=== PATIENT | male | born 1935 | race Caucasian/White ===

== ENCOUNTER → 2017-01-26 | Day surgery (SDC) | payer MEDICARE, BC ==
[~2017-01-26] MED LIST: Lactated Ringers 1,000 ML IV SCH; Propofol 200 MG/20 ML SDV IV ONE
--- NOTE | 2017-01-26 10:07 | OR ---
DATE OF OPERATION: 01/26/2017 PREOPERATIVE DIAGNOSIS: POSITIVE COLOGUARD. POSTOPERATIVE DIAGNOSIS: POSITIVE COLOGUARD. SURGEON: Toñito Merchant MD PROCEDURE: FULL-LENGTH COLONOSCOPY WITH POLYP REMOVAL X6, BIOPSIES X3. 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 COMPLICATIONS: None. SPECIMEN: 7 separate polyps, see note. FINDINGS: 1. Full-length colonoscopy. 2. Severe sigmoid diverticulosis. 3. Multiple polyps with 2 large villous lesion, 1 at the hepatic flexure, 2nd in the sigmoid colon. RECOMMENDATIONS: The patient will likely need surgical followup as his sigmoid lesion is large villous and likely unresectable via snare. INDICATIONS: The patient had a routine Cologuard at a [facility], it was positive. He has not had a colonoscopy since 2006. DESCRIPTION OF PROCEDURE: The patient was prepped and draped, placed in the left lateral decubitus position. A lubricated Olympus colonoscope was inserted and with relative ease advanced to the cecum. The patient is bit tortuous through the sigmoid and has severe diverticular disease but once through that region, scope passed quite easily. Directly visualized the ileocecal valve and got into the cecal pouch. Upon withdrawal, the patient had 1 small hyperplastic- appearing polyp in the cecal region removed in its entirety with a forceps. He had 2 more small tubular adenomas ulcer removed in their entirety with forceps in the mid to distal portion of the ascending colon. 4 small polyps were again located at the hepatic flexure, removed with 2 forceps biopsies as well. Just on the transverse colon side of the hepatic flexure, the patient had his 5th polyp which was a large villous lesion and was removed with a snare in 2 separate sections and suctioned into polyp trap #1. The rest of the transverse colon and for the most part all of the descending colon were essentially benign. As stated earlier, the patient has severe diverticular disease in the sigmoid region. In the mid sigmoid colon around 50 cm, the patient again had a very small hyperplastic-appearing polyp removed in its entirety with forceps. At about 45 to 40 cm, the patient had a larger villous lesion which occupied much of the haustral fold. It was very broad-based and not fungating, but unresectable with a snare safely in our facility. We elected to biopsy it x3. Just distal to that he had another small hyperplastic-appearing lesion which was quite flat. We did do biopsy of that. The rest of the rectosigmoid junction and rectal vault appeared benign. Retroflexion showed no anal lesions. Air was then suctioned. Scope was removed without complication. TAVO/GILDA /[id number]
== END ==
LOC: CC.SDS 06:16
PROVIDERS: ATTEND Family Medicine
DX: Z12.11 Encounter for screening for malignant neoplasm of colon (principal); D12.0 Benign neoplasm of cecum; D12.2 Benign neoplasm of ascending colon; D12.3 Benign neoplasm of transverse colon; D12.5 Benign neoplasm of sigmoid colon; K57.30 Diverticulosis of large intestine without perforation or abscess without bleeding; I25.10 Atherosclerotic heart disease of native coronary artery without angina pectoris; N40.1 Benign prostatic hyperplasia with lower urinary tract symptoms; R35.1 Nocturia; E11.9 Type 2 diabetes mellitus without complications; E78.5 Hyperlipidemia, unspecified; G47.30 Sleep apnea, unspecified; E55.9 Vitamin D deficiency, unspecified; Z79.82 Long term (current) use of aspirin; Z79.4 Long term (current) use of insulin; Z79.899 Other long term (current) drug therapy; Z90.49 Acquired absence of other specified parts of digestive tract; Z98.890 Other specified postprocedural states; Z87.891 Personal history of nicotine dependence
CPT/HCPCS: 45380; 82962; J2704; J7120; 00810; 88305

== ENCOUNTER 2018-12-22 18:23 | Emergency (ER) | payer MEDICARE, BC ==
--- NOTE | 2018-12-22 18:30 | EDM.PDOC ---
ED HPI GENERAL MEDICAL PROBLEM - General Chief Complaint: Genitourinary Problem Stated Complaint: "Prostate Infection" Time Seen by Provider: 12/22/18 18:25 Source of Information: Reports: Patient History Limitations: Reports: No Limitations - History of Present Illness INITIAL COMMENTS - FREE TEXT/NARRATIVE: in with c/o urinary frequency and burning for the past couple of days, no fever or chills, no abd pain, no nvdc, no unusual neck/back pain or stiffness Onset: Gradual Duration: Day(s): Quality: Reports: Burning (with urination) Severity: Mild Improves with: Reports: None Worsens with: Reports: Other (voiding) Associated Symptoms: Reports: No Other Symptoms. Denies: Cough, Fever/Chills, Headaches, Nausea/Vomiting, Shortness of Breath, Weakness Treatments PENETRATION TESTER: Reports: Other (see below) (none) Groin Pain Score (Numeric/FACES): 4 - Related Data Allergies Allergy/AdvReac Type Severity Reaction Status Date / Time No Known Allergies Allergy Verified 12/22/18 18:35 Home Meds: Home Meds Aspirin [Lo-Dose Aspirin EC] 81 mg PO DAILY 01/25/17 [History] Benazepril [Lotensin] 10 mg PO BID 01/25/17 [History] Insulin Detemir [Levemir Flextouch] 30 unit SQ BEDTIME 01/25/17 [History] Insulin NPH/Insulin Reg,Human [HumuLIN 70-30] 45 units SUBCUT BIDAC 01/25/17 [ History] Metoprolol Succinate 0.5 tab PO DAILY 01/25/17 [History] Multivitamin [One Daily] 1 each PO DAILY 01/25/17 [History] Simvastatin [Zocor] 40 mg PO DAILY 01/25/17 [History] amLODIPine Besylate [Amlodipine Besylate] 10 mg PO DAILY 01/25/17 [History] glyBURIDE [Glyburide] 5 mg PO BID 01/25/17 [History] Phenazopyridine [Pyridium] 100 mg PO TID 2 Days #6 tab 12/22/18 [Rx] cephALEXin [Keflex] 500 mg PO Q8H 10 Days #30 cap 12/22/18 [Rx] Past Medical History - Infectious Disease History Infectious Disease History: Reports: MRSA Other Infectious Disease History: left wrist incision 9/26/18 Social & Family History - Family History Cardiac: Reports: Hypertension - Tobacco Use Smoking Status *Q: Never Smoker - Alcohol Use Alcohol Use History: No - Living Situation & Occupation Living situation: Reports: with Family ED ROS GENERAL - Review of Systems Review Of Systems: See Below Constitutional: Reports: No Symptoms. Denies: Fever, Chills Respiratory: Reports: No Symptoms. Denies: Shortness of Breath Cardiovascular: Reports: No Symptoms. Denies: Chest Pain GI/Abdominal: Reports: No Symptoms. Denies: Abdominal Pain, Nausea, Vomiting : Reports: Frequency, Pain. Denies: Discharge, Dysuria, Flank Pain, Hematuria , Urinary Retention Musculoskeletal: Reports: No Symptoms. Denies: Neck Pain, Back Pain Skin: Reports: No Symptoms. Denies: Bruising, Rash, Erythema Neurological: Reports: No Symptoms Psychiatric: Reports: No Symptoms ED EXAM, RENAL/ - Physical Exam Exam: See Below Exam Limited By: No Limitations General Appearance: Alert, WD/WN, No Apparent Distress Ears: Normal External Exam Nose: Normal Inspection Throat/Mouth: Normal Inspection, Normal Lips, Normal Voice, No Airway Compromise Head: Atraumatic, Normocephalic Neck: Normal Inspection, Supple, Non-Tender Respiratory/Chest: No Respiratory Distress, Lungs Clear, Normal Breath Sounds Cardiovascular: Normal Peripheral Pulses, Regular Rate, Rhythm GI/Abdominal: Soft, Non-Tender Back Exam: Normal Inspection, Full Range of Motion. No: CVA Tenderness (L), CVA Tenderness (R) Extremities: Normal Inspection, Normal Range of Motion, Non-Tender, Normal Capillary Refill Neurological: Alert, Oriented, Normal Cognition, Normal Gait, No Motor/Sensory Deficits Psychiatric: Normal Affect, Normal Mood Skin Exam: Warm, Dry, Intact, Normal Color, No Rash Course - Vital Signs Last Recorded V/S: Last Vital Signs Temp 36.2 C 12/22/18 18:24 Pulse 94 12/22/18 18:24 Resp 16 12/22/18 18:24 BP 171/82 H 12/22/18 18:24 Pulse Ox 96 12/22/18 18:24 - Orders/Labs/Meds Orders: Active Orders 24 hr Category Date Time Status CULTURE URINE [RM] Stat Lab 12/22/18 18:39 Received Phenazopyridine [Urinary Pain Relief] Med 12/23/18 18:48 Once 95 mg PO ONETIME ONE Medication Orders Phenazopyridine HCl (Urinary Pain Relief) 95 mg PO ONETIME ONE Stop: 12/23/18 18:49 Labs: Laboratory Tests 12/22/18 Range/Units 18:39 Urine Color Yellow (YELLOW) Urine Appearance Slightly cloudy (CLEAR) Urine pH 5.5 (4.5-8.0) Ur Specific [place] 1.025 H (1.003-1.020) Urine Protein 100 H (NEGATIVE) mg/dL Urine Glucose (UA) Negative (NEGATIVE) mg/dL Urine Ketones Negative (NEGATIVE) mg/dL Urine Occult Blood Moderate H (NEGATIVE) Urine Nitrite Negative (NEGATIVE) Urine Bilirubin Negative (NEGATIVE) Urine Urobilinogen 0.2 (0.2-1.0) EU/dL Ur Leukocyte Esterase Large H (NEGATIVE) Urine RBC 5-10 H (0-5) /HPF Urine WBC 75-100 H (0-5) /HPF Urine Bacteria Few H (NOT SEEN) /HPF Meds: Medications Generic Name Dose Route Start Last Admin Trade Name Freq PRN Reason Stop Dose Admin Phenazopyridine HCl 95 mg 12/23/18 18:48 Urinary Pain Relief PO 12/23/18 18:49 ONETIME ONE Discontinued Medications Generic Name Dose Route Start Last Admin Trade Name Freq PRN Reason Stop Dose Admin Ceftriaxone Sodium 1 gm 12/22/18 18:47 Rocephin IM 12/22/18 18:48 ONETIME ONE Departure - Departure Time of Disposition: 18:48 Disposition: Home, Self-Care 01 Condition: Good Clinical Impression: UTI, Urinary tract infectious disease - Discharge Information *PRESCRIPTION DRUG MONITORING PROGRAM REVIEWED*: Not Applicable *COPY OF PRESCRIPTION DRUG MONITORING REPORT IN PATIENT AYAH: Not Applicable Prescriptions: cephALEXin [Keflex] 500 mg PO Q8H 10 Days #30 cap Phenazopyridine [Pyridium] 100 mg PO TID 2 Days #6 tab Instructions: Antibiotic Medicine, Adult, [id number], Urinary Tract Infection , Adult, [id number] Referrals: Vickey Cuellar PA-C [Primary Care Provider] - Forms: ED Department Discharge Additional Instructions: increase fluids pyridium 100mg 3 x a day for 2 days keflex 500mg 3 x a day for 10 days follow up with your family doctor to recheck your urine in 7 to 10 days, call in am for an appointment time return to the ER sooner if worse or problems - Problem List & Annotations (1) UTI, Urinary tract infectious disease SNOMED Code(s): 67653942 Code(s): N39.0 - URINARY TRACT INFECTION, SITE NOT SPECIFIED Status: Acute Priority: Medium Current Visit: Yes - Problem List Review Problem List Initiated/Reviewed/Updated: Yes - My Orders Last 24 Hours: My Active Orders 12/22/18 18:39 CULTURE URINE [RM] Stat 12/23/18 18:48 Phenazopyridine [Urinary Pain Relief] 95 mg PO ONETIME ONE - Assessment/Plan Last 24 Hours: My Active Orders 12/22/18 18:39 CULTURE URINE [RM] Stat 12/23/18 18:48 Phenazopyridine [Urinary Pain Relief] 95 mg PO ONETIME ONE Plan: as above
[2018-12-22] MEDS ORDERED: cefTRIAXone 1 GM Vial IM ONE (18:47)
[2018-12-23] MEDS ORDERED: Phenazopyridine 95 MG Tab PO ONE (18:48)
== END 2018-12-22 18:59 | disposition home or self-care (01) ==
LOC: CC.ED 18:23
DX: N39.0 Urinary tract infection, site not specified (principal); Z79.82 Long term (current) use of aspirin; Z79.899 Other long term (current) drug therapy
CPT/HCPCS: 81001; 87086; 87088; 87186; 96372; 99283; 99284; J0696

== ENCOUNTER 2019-01-02 19:54 | Emergency (ER) | payer MEDICARE, BC ==
[2019-01-02] MEDS ORDERED: Ciprofloxacin 500 MG Tab PO ONE (19:55)
--- NOTE | 2019-01-02 20:45 | EDM.PDOC ---
ED HPI GENERAL MEDICAL PROBLEM - General Chief Complaint: Genitourinary Problem Stated Complaint: "prostrate infection" Time Seen by Provider: 01/02/19 20:30 Source of Information: Reports: Patient History Limitations: Reports: No Limitations - History of Present Illness INITIAL COMMENTS - FREE TEXT/NARRATIVE: States that he has been having problems with his prostate for "a while" He has been on macrobid and it is getting worse. Has noted that it is getting worse tonight and has noted more bleeding so presented to the ER for evaluation. States that the other antibiotics that he used worked better. Has history of multiple prostrate infections in the past. No fever. Onset: Gradual Location: Reports: Pelvis Quality: Reports: Pressure Associated Symptoms: Reports: No Other Symptoms Groin Pain Score (Numeric/FACES): 7 - Related Data Allergies Allergy/AdvReac Type Severity Reaction Status Date / Time No Known Allergies Allergy Verified 01/02/19 19:57 Home Meds: Home Meds Benazepril [Lotensin] 10 mg PO BID 01/25/17 [History] Insulin Detemir [Levemir Flextouch] 30 unit SQ BEDTIME 01/25/17 [History] Insulin NPH/Insulin Reg,Human [HumuLIN 70-30] 45 units SUBCUT BIDAC 01/25/17 [ History] Metoprolol Succinate 0.5 tab PO DAILY 01/25/17 [History] Multivitamin [One Daily] 1 each PO DAILY 01/25/17 [History] Simvastatin [Zocor] 40 mg PO DAILY 01/25/17 [History] amLODIPine Besylate [Amlodipine Besylate] 10 mg PO DAILY 01/25/17 [History] glyBURIDE [Glyburide] 5 mg PO BID 01/25/17 [History] Nitrofurantoin [place]/Macrocryst [Nitrofurantoin [place]-MCR] 100 mg PO BID 01/02/19 [History] Past Medical History HEENT History: Reports: Hard of Hearing Cardiovascular History: Reports: High Cholesterol, Hypertension Genitourinary History: Reports: Prostate Disorder, UTI, Recurrent Endocrine/Metabolic History: Reports: Diabetes, Type II - Infectious Disease History Infectious Disease History: Reports: MRSA Other Infectious Disease History: left wrist incision 01/02/18 Social & Family History - Family History Family Medical History: Noncontributory Cardiac: Reports: Hypertension - Caffeine Use Caffeine Use: Reports: Coffee - Living Situation & Occupation Living situation: Reports: with Family ED ROS GENERAL - Review of Systems Review Of Systems: See Below Constitutional: Denies: Fever, Chills Respiratory: Reports: No Symptoms Cardiovascular: Reports: No Symptoms : Reports: Hematuria, Pain Skin: Reports: No Symptoms ED EXAM, RENAL/ - Physical Exam Exam: See Below Exam Limited By: No Limitations General Appearance: Alert, WD/WN, Mild Distress Respiratory/Chest: No Respiratory Distress, Lungs Clear, Normal Breath Sounds Cardiovascular: Normal Peripheral Pulses, Regular Rate, Rhythm, No Edema GI/Abdominal: Normal Bowel Sounds, Soft, Non-Tender Extremities: Normal Inspection, No Pedal Edema Neurological: Alert, Oriented Skin Exam: Warm, Dry, Intact Course - Vital Signs Last Recorded V/S: Last Vital Signs Temp 97.7 F 01/02/19 19:55 Pulse 104 H 01/02/19 19:55 Resp 20 01/02/19 19:55 BP 116/92 H 01/02/19 19:55 Pulse Ox 98 01/02/19 19:55 - Orders/Labs/Meds Labs: Laboratory Tests 01/02/19 01/02/19 01/02/19 Range/Units 20:17 20:20 20:20 WBC 10.2 H (5.0-10.0) 10^3/uL RBC 5.80 (4.50-6.00) 10^6/uL Hgb 16.6 (14.0-18.0) g/dL Hct 48.4 (40.0-54.0) % MCV 83.4 (82.0-94.0) fL MCH 28.6 (27.0-32.0) pg MCHC 34.3 (33.0-38.0) g/dL RDW Coeff of Hernandez 14.8 (11.0-15.0) % Plt Count 187 (150-400) 10^3/uL Neut % (Auto) 68.2 (35-85) % Lymph % (Auto) 18.1 (10-55) % [place] % (Auto) 10.7 (0-16) % Eos % (Auto) 2.4 (0-5) % Baso % (Auto) 0.6 (0-3) % Neut # (Auto) 6.98 (1.80-7.00) 10^3/uL Lymph # (Auto) 1.85 (1.00-4.80) 10^3/uL [place] # (Auto) 1.09 H (0.00-0.80) 10^3/uL Eos # (Auto) 0.25 (0.00-0.45) 10^3/uL Baso # (Auto) 0.06 10^3/uL C-Reactive Protein < 0.2 L (0.2-0.8) mg/dL Urine Color Yellow (YELLOW) Urine Appearance Slightly cloudy (CLEAR) Urine pH 5.5 (4.5-8.0) Ur Specific [place] 1.020 (1.003-1.020) Urine Protein 100 H (NEGATIVE) mg/dL Urine Glucose (UA) Negative (NEGATIVE) mg/dL Urine Ketones Negative (NEGATIVE) mg/dL Urine Occult Blood Large H (NEGATIVE) Urine Nitrite Negative (NEGATIVE) Urine Bilirubin Negative (NEGATIVE) Urine Urobilinogen 0.2 (0.2-1.0) EU/dL Ur Leukocyte Esterase Negative (NEGATIVE) Urine RBC >100 H (0-5) /HPF Urine WBC Not seen (0-5) /HPF Ur Epithelial Cells Few H (NOT SEEN) /HPF Departure - Departure Time of Disposition: 20:46 Disposition: Home, Self-Care 01 Condition: Fair Clinical Impression: Prostatitis - Discharge Information *PRESCRIPTION DRUG MONITORING PROGRAM REVIEWED*: Not Applicable *COPY OF PRESCRIPTION DRUG MONITORING REPORT IN PATIENT AYAH: Not Applicable Additional Instructions: push fluids as much as possible Stop the macrobid Cipro 250 mg twice a day for 14 days Follow up in clinic as needed. - Problem List & Annotations (1) Prostatitis SNOMED Code(s): 2058682 Code(s): N41.9 - INFLAMMATORY DISEASE OF PROSTATE, UNSPECIFIED Status: Acute Priority: High - Problem List Review Problem List Initiated/Reviewed/Updated: Yes
[2019-01-02] MEDS: Take Home: Ciprofloxacin 500 MG Tab, 2 Tab Pack PO ONE (20:52)
== END 2019-01-02 20:58 | disposition home or self-care (01) ==
LOC: CC.ED 19:54
DX: N41.9 Inflammatory disease of prostate, unspecified (principal); I10 Essential (primary) hypertension; E11.9 Type 2 diabetes mellitus without complications; E78.5 Hyperlipidemia, unspecified; Z79.4 Long term (current) use of insulin; Z79.899 Other long term (current) drug therapy
CPT/HCPCS: 36415; 81001; 85025; 86140; 99283; A9270

== ENCOUNTER 2019-10-31 20:31 | Emergency (ER) | payer MEDICARE, BC ==
[2019-10-31 21:24] LABS: CHLORIDE,CL 104 mEq/L (98-106); SODIUM,NA 141 mEq/L (136-145)
--- NOTE | 2019-10-31 21:26 | EDM.PDOC ---
ED HPI GENERAL MEDICAL PROBLEM - General Chief Complaint: Genitourinary Problem Stated Complaint: "I think I have a bladder infection again." Time Seen by Provider: 10/31/19 20:54 Source of Information: Reports: Patient History Limitations: Reports: No Limitations - History of Present Illness INITIAL COMMENTS - FREE TEXT/NARRATIVE: This patient is an 84 year old male that presents to the ER. Patient reports that since about 5pm having urinary retention with blood in urine and a painful/full bladder. The patient reports that he was taking his Bactrim DS for preventative of his prostate, but he ran out a few days ago, then started retaking today. Onset: Today Onset Date: 10/31/19 Onset Time: 17:00 Location: Reports: Other (bladder) Severity: Moderate Improves with: Reports: None Worsens with: Reports: None Associated Symptoms: Denies: Confusion, Chest Pain, Cough, cough w sputum, Diaphoresis, Fever/Chills, Headaches, Loss of Appetite, Malaise, Nausea/Vomiting, Rash, Seizure, Shortness of Breath, Syncope, Weakness Pelvic Pain Score (Numeric/FACES): 8 - Related Data Allergies Allergy/AdvReac Type Severity Reaction Status Date / Time No Known Allergies Allergy Verified 10/31/19 20:43 Home Meds: Home Meds Benazepril [Lotensin] 10 mg PO BID 01/25/17 [History] Insulin Detemir [Levemir Flextouch] 30 unit SQ BEDTIME 01/25/17 [History] Insulin NPH/Insulin Reg,Human [HumuLIN 70-30] 50 units SUBCUT BIDAC 01/25/17 [History] Simvastatin [Zocor] 40 mg PO DAILY 01/25/17 [History] glyBURIDE [Glyburide] 5 mg PO BID 01/25/17 [History] Aspirin [Ecotrin EC] 81 mg PO DAILY 10/31/19 [History] Insulin Isophane NPH, Human [HumuLIN N] 20 units SQ WITHLUNCH 10/31/19 [History] Metoprolol Succinate [Toprol XL 100mg] 100 mg PO DAILY 10/31/19 [History] Sulfamethoxazole/Trimethoprim [Sulfamethoxazole-Tmp Ds Tablet] 1 each PO DAILY 10/31/19 [History] amLODIPine/Benazepril [Lotrel 10-20 MG] 1 cap PO DAILY 10/31/19 [History] lisinopriL [Lisinopril] 20 mg PO BID 10/31/19 [History] Past Medical History HEENT History: Reports: Hard of Hearing Cardiovascular History: Reports: High Cholesterol, Hypertension Genitourinary History: Reports: Prostate Disorder, UTI, Recurrent Endocrine/Metabolic History: Reports: Diabetes, Type II - Infectious Disease History Infectious Disease History: Reports: MRSA Other Infectious Disease History: left wrist incision 01/02/18 - Past Surgical History HEENT Surgical History: Reports: None Social & Family History - Family History Family Medical History: Noncontributory Cardiac: Reports: Hypertension - Caffeine Use Caffeine Use: Reports: Coffee - Living Situation & Occupation Living situation: Reports: with Family ED ROS GENERAL - Review of Systems Review Of Systems: See Below Constitutional: Reports: No Symptoms. Denies: Fever, Chills HEENT: Reports: No Symptoms Respiratory: Reports: No Symptoms Endocrine: Reports: No Symptoms GI/Abdominal: Reports: No Symptoms. Denies: Abdominal Pain, Nausea, Vomiting : Reports: Hematuria, Urgency, Urinary Retention. Denies: Flank Pain Musculoskeletal: Reports: No Symptoms Skin: Reports: No Symptoms Neurological: Reports: No Symptoms Psychiatric: Reports: No Symptoms Hematologic/Lymphatic: Reports: No Symptoms Immunologic: Reports: No Symptoms ED EXAM, RENAL/ - Physical Exam Exam: See Below Exam Limited By: No Limitations General Appearance: Alert, WD/WN, No Apparent Distress Eye Exam: Bilateral Eye: Normal Inspection, PERRL Head: Atraumatic, Normocephalic Neck: Normal Inspection, Supple, Full Range of Motion Respiratory/Chest: No Respiratory Distress, No Accessory Muscle Use, Rhonchi (throughout) Cardiovascular: Normal Peripheral Pulses, Regular Rate, Rhythm, No Edema, No Gallop, No JVD, No Murmur, No Rub GI/Abdominal: Normal Bowel Sounds, Soft, Non-Tender (Male) Exam: Other (bladder fullness) Back Exam: Normal Inspection, Full Range of Motion Extremities: Normal Inspection, Normal Range of Motion, Non-Tender, No Pedal Edema, Normal Capillary Refill Neurological: Alert, Oriented Psychiatric: Normal Affect, Normal Mood Skin Exam: Warm, Dry, Intact, Normal Color, No Rash Course - Vital Signs Last Recorded V/S: Last Vital Signs Temp 98.3 F 10/31/19 20:32 Pulse 95 10/31/19 20:32 Resp 16 10/31/19 20:32 BP 170/80 H 10/31/19 20:32 Pulse Ox 99 10/31/19 20:32 - Orders/Labs/Meds Labs: Laboratory Tests 10/31/19 10/31/19 10/31/19 Range/Units 20:56 20:56 21:20 WBC 10.2 H (5.0-10.0) 10^3/uL RBC 5.68 (4.50-6.00) 10^6/uL Hgb 16.2 (14.0-18.0) g/dL Hct 48.2 (40.0-54.0) % MCV 84.9 (82.0-94.0) fL MCH 28.5 (27.0-32.0) pg MCHC 33.6 (33.0-38.0) g/dL RDW Coeff of Hernandez 14.8 (11.0-15.0) % Plt Count 199 (150-400) 10^3/uL Neut % (Auto) 63.8 (35-85) % Lymph % (Auto) 22.0 (10-55) % [place] % (Auto) 10.8 (0-16) % Eos % (Auto) 3.1 (0-5) % Baso % (Auto) 0.3 (0-3) % Neut # (Auto) 6.53 (1.80-7.00) 10^3/uL Lymph # (Auto) 2.25 (1.00-4.80) 10^3/uL [place] # (Auto) 1.11 H (0.00-0.80) 10^3/uL Eos # (Auto) 0.32 (0.00-0.45) 10^3/uL Baso # (Auto) 0.03 10^3/uL Sodium 141 (136-145) mEq/L Potassium 4.3 (3.5-5.0) mEq/L Chloride 104 (98-106) mEq/L Carbon Dioxide 23 (21-32) mmol/L BUN 17 (7-18) mg/dL Creatinine 1.1 (0.7-1.3) mg/dL Est Cr Clr Drug Dosing 53.24 mL/min Estimated GFR (MDRD) > 60 (>=60) mL/min Glucose 253 H D (75-99) mg/dL Calcium 8.9 (8.4-10.1) mg/dL Total Bilirubin 0.7 (0.0-1.0) mg/dL AST 23 (15-37) U/L ALT 30 (12-78) U/L Alkaline Phosphatase 92 (46-116) U/L Total Protein 7.9 (6.4-8.2) g/dL Albumin 4.1 (3.4-5.0) g/dL Urine Color Yellow (YELLOW) Urine Appearance Clear (CLEAR) Urine pH 6.0 (4.5-8.0) Ur Specific [place] >= 1.030 H (1.003-1.020) Urine Protein 100 H (NEGATIVE) mg/dL Urine Glucose (UA) Negative (NEGATIVE) mg/dL Urine Ketones Negative (NEGATIVE) mg/dL Urine Occult Blood Large H (NEGATIVE) Urine Nitrite Negative (NEGATIVE) Urine Bilirubin Negative (NEGATIVE) Urine Urobilinogen 0.2 (0.2-1.0) EU/dL Ur Leukocyte Esterase Trace H (NEGATIVE) Urine RBC 50-75 H (0-5) /HPF Urine WBC Not seen (0-5) /HPF - Re-Assessments/Exams Free Text/Narrative Re-Assessment/Exam: 10/31/19 21:56 Patient had 1,100ml out frances. Patient reports he feels much better. blood with small clot initially, now flowing clear urine. Will discharge with frances. Departure - Departure Time of Disposition: 21:51 Disposition: Home, Self-Care 01 Condition: Fair Clinical Impression: Urinary retention due to benign prostatic hyperplasia - Discharge Information *PRESCRIPTION DRUG MONITORING PROGRAM REVIEWED*: Not Applicable *COPY OF PRESCRIPTION DRUG MONITORING REPORT IN PATIENT AYAH: Not Applicable Instructions: Indwelling Urinary Catheter Care, Adult, Benign Prostatic Hyperplasia, Acute Urinary Retention, Male, [id number] Forms: ED Department Discharge Additional Instructions: Followup with your primary care provider Sunday for recheck and possible catheter removal and urine culture report Followup with Dr. Bacon Return to the ER for clogging of catheter, fever, vomiting, or any concerns Continue your Bactrim DS as prescribed Sepsis Event Note (ED) - Evaluation Sepsis Screening Result: No Definite Risk - Focused Exam Vital Signs: Vital Signs Temp Pulse Resp BP Pulse Ox 10/31/19 20:32 98.3 F 95 16 170/80 H 99 - Assessment/Plan Plan: SEE RN NOTE FOR PFSH.
== END 2019-10-31 22:20 | disposition home or self-care (01) ==
LOC: CC.ED 20:31
DX: N40.1 Benign prostatic hyperplasia with lower urinary tract symptoms (principal); R33.8 Other retention of urine; I10 Essential (primary) hypertension; E11.9 Type 2 diabetes mellitus without complications; E78.00 Pure hypercholesterolemia, unspecified; Z79.82 Long term (current) use of aspirin; Z79.4 Long term (current) use of insulin; Z79.899 Other long term (current) drug therapy
CPT/HCPCS: 36415; 51702; 80053; 81001; 85025; 99283; 99284

== ENCOUNTER → 2020-01-14 | Emergency (ER) | payer MEDICARE, BC | LOC: CC.ED 19:24 | DX: Z53.21 Procedure and treatment not carried out due to patient leaving prior to being seen by health care provider (principal) ==

== ENCOUNTER 2020-02-01 10:34 | Inpatient (IN) | payer MEDICARE, BC ==
--- NOTE | 2020-02-01 11:32 | EDM.PDOC ---
ED HPI GENERAL MEDICAL PROBLEM - General Chief Complaint: General Stated Complaint: Nausea. COVID+ Time Seen by Provider: 02/01/20 10:50 Source of Information: Reports: Patient History Limitations: Reports: Other (hard of hearing) - History of Present Illness INITIAL COMMENTS - FREE TEXT/NARRATIVE: Marino is a 84 year old male who presents with complaints of weakness. Has been dealing with symptoms related to COVID. He tested over 2 weeks ago, was out of restrictions on . Patient states he continues to get more weak, not eating or drinking well as of late. Is feeling more short of breath. Cough has been nonproductive. No fevers. Has been alone over the last 2 weeks and feels he is getting sicker and sicker. Was seen on Sunday by Shalini and told his sodium was low and that he needed more intake of sodium-laden foods. Is now unable to keep any foods down now. Vomited 3 times in the last 15 hours. Also started having diarrhea. Patient very hard of hearing. Able to communicate by writing on paper. Onset: Gradual Duration: Week(s): Location: Reports: Generalized Quality: Reports: Ache Severity: Mild Associated Symptoms: Reports: Cough, cough w sputum, Malaise, Nausea/Vomiting, Shortness of Breath, Weakness. Denies: Confusion, Chest Pain - Related Data Allergies Allergy/AdvReac Type Severity Reaction Status Date / Time No Known Allergies Allergy Verified 02/01/20 13:27 Home Meds: Home Meds Benazepril [Lotensin] 10 mg PO BID 01/25/17 [History] Insulin Detemir [Levemir Flextouch] 30 unit SQ BEDTIME 01/25/17 [History] Insulin NPH/Insulin Reg,Human [HumuLIN 70-30] 50 units SUBCUT BIDAC 01/25/17 [History] Simvastatin [Zocor] 40 mg PO DAILY 01/25/17 [History] Aspirin [Ecotrin EC] 81 mg PO DAILY 10/31/19 [History] Insulin Isophane NPH, Human [HumuLIN N] 20 units SQ WITHLUNCH 10/31/19 [History] Metoprolol Succinate [Toprol XL 100mg] 100 mg PO DAILY 10/31/19 [History] Ketoconazole [Nizoral 2% Crm] 1 each TOP DAILY 12/11/19 [History] Tamsulosin HCl 0.4 mg PO DAILY 12/11/19 [History] Fluconazole [Diflucan] 100 mg PO DAILY 02/01/20 [History] Ondansetron [Zofran ODT] 4 mg PO Q6H PRN 02/01/20 [History] amLODIPine [Norvasc] 10 mg PO DAILY 02/01/20 [History] cloNIDine HCL [Clonidine HCl] 0.1 mg PO BID 02/01/20 [History] Past Medical History HEENT History: Reports: Hard of Hearing Cardiovascular History: Reports: High Cholesterol, Hypertension Genitourinary History: Reports: Prostate Disorder, UTI, Recurrent Endocrine/Metabolic History: Reports: Diabetes, Type II - Infectious Disease History Infectious Disease History: Reports: MRSA Other Infectious Disease History: left wrist incision 01/02/18 - Past Surgical History HEENT Surgical History: Reports: None Social & Family History - Family History Family Medical History: Noncontributory Cardiac: Reports: Hypertension - Tobacco Use Tobacco Use Status *Q: Never Tobacco User - Caffeine Use Caffeine Use: Reports: None - Recreational Drug Use Recreational Drug Use: No - Living Situation & Occupation Living situation: Reports: with Family ED ROS GENERAL - Review of Systems Review Of Systems: See Below Constitutional: Reports: Malaise, Weakness, Fatigue, Decreased Appetite. Denies: Fever, Chills HEENT: Denies: Sinus Problem, Throat Pain Respiratory: Reports: Shortness of Breath, Cough, Sputum Cardiovascular: Denies: Chest Pain, Edema, Lightheadedness Endocrine: Reports: Fatigue GI/Abdominal: Reports: Abdominal Pain, Diarrhea, Nausea, Vomiting. Denies: Constipation : Reports: No Symptoms Musculoskeletal: Reports: No Symptoms Skin: Reports: No Symptoms Neurological: Reports: Weakness ED EXAM, GENERAL - Physical Exam Exam: See Below Exam Limited By: No Limitations General Appearance: Alert, WD/WN, No Apparent Distress Ears: Normal External Exam, Normal TMs Nose: Normal Inspection, Normal Mucosa, No Blood Throat/Mouth: Normal Inspection, Normal Oropharynx Head: Normocephalic Neck: Normal Inspection, Supple, Non-Tender Respiratory/Chest: Decreased Breath Sounds, Rales (RLL) Cardiovascular: Regular Rate, Rhythm GI/Abdominal: Normal Bowel Sounds, Soft, Tender (midepigastric pain with palpation) Extremities: Normal Inspection, No Pedal Edema Neurological: Alert, Oriented Skin Exam: Warm, Dry Course - Vital Signs Last Recorded V/S: Last Vital Signs Temp 97 F 02/01/20 12:10 Pulse 99 02/01/20 12:10 Resp 20 02/01/20 12:10 BP 132/70 02/01/20 12:10 Pulse Ox 95 02/01/20 12:10 - Orders/Labs/Meds Orders: Active Orders 24 hr Category Date Time Status Chest 2V [CR] Stat Exams 02/01/20 10:44 Taken CULTURE BLOOD [BC] Stat Lab 02/01/20 10:59 Received CULTURE BLOOD [BC] Stat Lab 02/01/20 11:12 Received UA RFX BRANDON AND CULT IF INDIC [URIN] Stat Lab 02/01/20 10:44 Ordered Medication Orders Acetaminophen (Tylenol) 650 mg PO Q4H PRN PRN Reason: Pain (Mild 1-3)/fever Aspirin (Halfprin) 81 mg PO DAILY [facility] Clonidine HCl (Catapres) 0.1 mg PO BID [facility] Dexamethasone (Dexamethasone) 6 mg PO DAILY [facility] Enoxaparin Sodium (Lovenox) 40 mg SUBCUT BID [facility] Fluconazole (Diflucan) 100 mg PO DAILY [facility] Sodium Chloride (Normal Saline) 1,000 mls @ 50 mls/hr IV ASDIRECTED [facility] Ketoconazole (Nizoral 2% Crm) 15 gm TOP DAILY [facility] Metoprolol Succinate (Toprol Xl) 100 mg PO DAILY [facility] Non-Formulary Medication (Amlodipine [Norvasc]) 10 mg PO DAILY [facility] [place] Non-Formulary Medication (Benazepril [Lotensin]) 10 mg PO BID [facility] Non-Formulary Medication (Insulin Detemir) 30 unit SQ BEDTIME [facility] Non-Formulary Medication (Insulin Isophane Nph, Human) 20 units SQ WITHLUNCH [facility] Non-Formulary Medication (Insulin Nph/Insulin Reg,Human) 50 units SUBCUT BIDAC [facility] Ondansetron HCl (Zofran Odt) 4 mg PO Q4H PRN PRN Reason: nausea, able to take PO Pantoprazole Sodium (Protonix Iv) 40 mg IVPUSH Q24H [facility] Simvastatin (Zocor) 40 mg PO DAILY [facility] Tamsulosin HCl (Flomax) 0.4 mg PO DAILY [facility] Labs: Laboratory Tests 02/01/20 02/01/20 02/01/20 Range/Units 10:59 10:59 10:59 WBC 5.2 (5.0-10.0) 10^3/uL RBC 5.20 (4.50-6.00) 10^6/uL Hgb 13.8 L (14.0-18.0) g/dL Hct 41.4 (40.0-54.0) % MCV 79.6 L (82.0-94.0) fL MCH 26.5 L (27.0-32.0) pg MCHC 33.3 (33.0-38.0) g/dL RDW Coeff of Hernandez 14.7 (11.0-15.0) % Plt Count 182 (150-400) 10^3/uL Neut % (Auto) 76.1 (35-85) % Lymph % (Auto) 10.3 (10-55) % Crawford % (Auto) 13.4 (0-16) % Eos % (Auto) 0 (0-5) % Baso % (Auto) 0.2 (0-3) % Neut # (Auto) 3.93 (1.80-7.00) 10^3/uL Lymph # (Auto) 0.53 L (1.00-4.80) 10^3/uL Crawford # (Auto) 0.69 (0.00-0.80) 10^3/uL Eos # (Auto) 0.00 (0.00-0.45) 10^3/uL Baso # (Auto) 0.01 10^3/uL PT 11.6 (9.7-12.3) SEC INR 1.15 (0.92-1.18) D-Dimer, Quantitative 1.30 H (0.00-0.50) Sodium 130 L (136-145) mEq/L Potassium 4.6 (3.5-5.0) mEq/L Chloride 96 L (98-106) mEq/L Carbon Dioxide 20 L (21-32) mmol/L BUN 21 H (7-18) mg/dL Creatinine 1.6 H (0.7-1.3) mg/dL Est Cr Clr Drug Dosing 35.49 mL/min Estimated GFR (MDRD) 41 L (>=60) mL/min Glucose 228 H D (75-99) mg/dL Lactic Acid (0.4-2.0) mmol/L Calcium 8.5 (8.4-10.1) mg/dL Magnesium 1.9 (1.8-2.4) mg/dL Total Bilirubin 0.9 (0.0-1.0) mg/dL AST 18 (15-37) U/L ALT 18 (12-78) U/L Alkaline Phosphatase 74 (46-116) U/L C-Reactive Protein 6.4 H (0.2-0.8) mg/dL Total Protein 6.9 (6.4-8.2) g/dL Albumin 2.9 L (3.4-5.0) g/dL 01/31/ Range/Units 10:59 WBC (5.0-10.0) 10^3/uL RBC (4.50-6.00) 10^6/uL Hgb (14.0-18.0) g/dL Hct (40.0-54.0) % MCV (82.0-94.0) fL MCH (27.0-32.0) pg MCHC (33.0-38.0) g/dL RDW Coeff of Hernandez (11.0-15.0) % Plt Count (150-400) 10^3/uL Neut % (Auto) (35-85) % Lymph % (Auto) (10-55) % Crawford % (Auto) (0-16) % Eos % (Auto) (0-5) % Baso % (Auto) (0-3) % Neut # (Auto) (1.80-7.00) 10^3/uL Lymph # (Auto) (1.00-4.80) 10^3/uL Crawford # (Auto) (0.00-0.80) 10^3/uL Eos # (Auto) (0.00-0.45) 10^3/uL Baso # (Auto) 10^3/uL PT (9.7-12.3) SEC INR (0.92-1.18) D-Dimer, Quantitative (0.00-0.50) Sodium (136-145) mEq/L Potassium (3.5-5.0) mEq/L Chloride (98-106) mEq/L Carbon Dioxide (21-32) mmol/L BUN (7-18) mg/dL Creatinine (0.7-1.3) mg/dL Est Cr Clr Drug Dosing mL/min Estimated GFR (MDRD) (>=60) mL/min Glucose (75-99) mg/dL Lactic Acid 3.1 H (0.4-2.0) mmol/L Calcium (8.4-10.1) mg/dL Magnesium (1.8-2.4) mg/dL Total Bilirubin (0.0-1.0) mg/dL AST (15-37) U/L ALT (12-78) U/L Alkaline Phosphatase (46-116) U/L C-Reactive Protein (0.2-0.8) mg/dL Total Protein (6.4-8.2) g/dL Albumin (3.4-5.0) g/dL Meds: Medications Generic Name Dose Route Start Last Admin Trade Name Freq PRN Reason Stop Dose Admin Acetaminophen 650 mg 02/01/20 12:10 Tylenol PO Q4H PRN Pain (Mild 1-3)/fever Aspirin 81 mg 02/02/20 08:00 Halfprin PO DAILY [facility] Clonidine HCl 0.1 mg 02/01/20 20:00 Catapres PO BID [facility] Dexamethasone 6 mg 02/01/20 13:30 Dexamethasone PO DAILY [facility] Enoxaparin Sodium 40 mg 02/01/20 12:10 Lovenox SUBCUT BID [facility] Fluconazole 100 mg 02/02/20 08:00 Diflucan PO DAILY [facility] Sodium Chloride 1,000 mls @ 50 mls/hr 02/01/20 12:10 Normal Saline IV ASDIRECTED [facility] Ketoconazole 15 gm 02/02/20 08:00 Nizoral 2% Crm TOP DAILY [facility] Metoprolol Succinate 100 mg 02/02/20 08:00 Toprol Xl PO DAILY [facility] Non-Formulary Medication 10 mg 02/02/20 08:00 Amlodipine [Norvasc] PO DAILY [facility] Non-Formulary Medication 10 mg 02/01/20 20:00 Benazepril [Lotensin] PO BID [facility] Non-Formulary Medication 30 unit 02/01/20 20:00 Insulin Detemir SQ BEDTIME [facility] Non-Formulary Medication 20 units 02/02/20 12:00 Insulin Isophane Nph, Human SQ WITHLUNCH [facility] Non-Formulary Medication 50 units 02/01/20 17:00 Insulin Nph/Insulin Reg,Human SUBCUT BIDAC [facility] Ondansetron HCl 4 mg 02/01/20 12:10 Zofran Odt PO Q4H PRN nausea, able to take PO Pantoprazole Sodium 40 mg 02/01/20 13:30 Protonix Iv IVPUSH Q24H [facility] Simvastatin 40 mg 02/02/20 08:00 Zocor PO DAILY [facility] Tamsulosin HCl 0.4 mg 02/02/20 08:00 Flomax PO DAILY [facility] - Re-Assessments/Exams Free Text/Narrative Re-Assessment/Exam: 02/01/20 12:14 Chest xray shows more significant infiltrate than 2 days prior. Labs noted, sodium low at 130. Lactic acid 3.1. CRP 6.4. 02/01/20 13:37 Contacted [facility] and spoke with Dr. Fried in regards to patient status. As is outside the 10 day window, does not feel would benefit from either Remdesivir or plasma. Start dexamethasone and obtain an echocardiogram. Protonix and zofran for his nausea. infuse fluids cautiously. Departure - Departure Time of Disposition: 12:17 Disposition: Admitted As Inpatient 66 Condition: Fair Clinical Impression: Viral pneumonitis, COVID-19 - Discharge Information *PRESCRIPTION DRUG MONITORING PROGRAM REVIEWED*: No *COPY OF PRESCRIPTION DRUG MONITORING REPORT IN PATIENT AYAH: No Sepsis Event Note (ED) - Evaluation Sepsis Screening Result: No Definite Risk - Focused Exam Vital Signs: Vital Signs Temp Pulse Resp BP Pulse Ox 02/01/20 10:34 97.9 F 103 H 22 H 120/63 95 - Problem List & Annotations (1) Weakness SNOMED Code(s): 30901666 Code(s): R53.1 - WEAKNESS Status: Acute Priority: High Current Visit: Yes (2) COVID-19 SNOMED Code(s): 760795634 Code(s): U07.1 - COVID-19 Status: Acute Priority: High Current Visit: Yes (3) Viral pneumonitis SNOMED Code(s): 29934212 Code(s): J12.9 - VIRAL PNEUMONIA, UNSPECIFIED Status: Acute Priority: High Current Visit: Yes - Problem List Review Problem List Initiated/Reviewed/Updated: Yes - My Orders Last 24 Hours: My Active Orders 02/01/20 10:44 Chest 2V [CR] Stat UA RFX BRANDON AND CULT IF INDIC [URIN] Stat 02/01/20 10:59 CULTURE BLOOD [BC] Stat 02/01/20 11:12 CULTURE BLOOD [BC] Stat - Assessment/Plan Admission H&P: Please use this note as an admission H&P Last 24 Hours: My Active Orders 02/01/20 10:44 Chest 2V [CR] Stat UA RFX BRANDON AND CULT IF INDIC [URIN] Stat 02/01/20 10:59 CULTURE BLOOD [BC] Stat 02/01/20 11:12 CULTURE BLOOD [BC] Stat Assessment:: Weakness Viral Pneumonitis COVID 19 Plan: Admit to inpatient. Start Dexamethasone. IV fluids cautiously. Protonix and zofran IV.
[2020-02-01] MEDS ORDERED: Ondansetron 4 MG Tab.DIS PO PRN (12:10)
[2020-02-01] MEDS ORDERED: Acetaminophen 325 MG Tab PO PRN (12:10)
[2020-02-01] MEDS ORDERED: Furosemide 40 MG/4 ML VIAL IVPUSH ONE (14:12)
[2020-02-01] MEDS: Sodium Chloride 0.9% 1,000 ML IV SCH (14:37)
[2020-02-01] MEDS: Dexamethasone 4 MG Tab PO SCH (14:38)
[2020-02-01] MEDS: Cholecalciferol (Vitamin D3) 25 MCG Tab PO SCH (14:38)
[2020-02-01] MEDS: Enoxaparin 40 MG/0.4 ML Syringe SUBCUT SCH ×2 (14:38→19:46)
[2020-02-01] MEDS: Ascorbic Acid 500 MG Tab PO SCH (14:39)
[2020-02-01] MEDS: Pantoprazole 40 MG Vial IVPUSH SCH (14:39)
[2020-02-01] MEDS ORDERED: Insulin Regular, Human 100 Units/ML 3 ML Vial SUBCUT SCH (17:00)
[2020-02-01] MEDS ORDERED: Insulin Glarg,Human.Rec.Analog 100 Unit/ML SUBCUT SCH (20:00)
[2020-02-01] MEDS: cloNIDine 0.1 MG Tab PO SCH (20:09)
[2020-02-01] MEDS: Lisinopril 10 MG Tab PO SCH (20:09)
[2020-02-01] MEDS: Insulin Glarg,Human.Rec.Analog 100 Unit/ML SUBCUT SCH (20:09)
[2020-02-02] MEDS: Tamsulosin 0.4 MG Cap.ER PO SCH (07:56)
[2020-02-02] MEDS: Ascorbic Acid 500 MG Tab PO SCH (07:56)
[2020-02-02] MEDS: Simvastatin 40 MG Tab PO SCH (07:56)
[2020-02-02] MEDS: Zinc Sulfate 220 MG Cap PO SCH (07:56)
[2020-02-02] MEDS: amLODIPine 10 MG Tab PO SCH (07:56)
[2020-02-02] MEDS: Enoxaparin 40 MG/0.4 ML Syringe SUBCUT SCH ×2 (07:56→19:46)
[2020-02-02] MEDS: Dexamethasone 4 MG Tab PO SCH (07:57)
[2020-02-02] MEDS: Furosemide 40 MG Tab PO SCH (07:58)
[2020-02-02] MEDS: Fluconazole 100 MG Tab PO SCH (07:58)
[2020-02-02] MEDS: Lisinopril 10 MG Tab PO SCH ×2 (07:58→19:46)
[2020-02-02] MEDS: Aspirin 81 MG Tab.EC PO SCH (07:58)
[2020-02-02] MEDS: Cholecalciferol (Vitamin D3) 25 MCG Tab PO SCH (07:58)
[2020-02-02] MEDS: cloNIDine 0.1 MG Tab PO SCH ×2 (07:58→19:46)
[2020-02-02] MEDS: Metoprolol Succinate 100 MG Tab.ER PO SCH (07:58)
[2020-02-02] MEDS: Insulin Regular, Human 100 Units/ML 3 ML Vial SUBCUT SCH ×3 (08:12→18:07)
[2020-02-02] MEDS: Sodium Chloride 0.9% 1,000 ML IV SCH (10:02)
[2020-02-02] MEDS: Ketoconazole 15 GM TUBE TOP SCH (11:37)
[2020-02-02] MEDS ORDERED: INSULIN ISOPHANE NPH HUMAN SQ SCH (12:00)
[2020-02-02] MEDS ORDERED: Insulin Lispro 100 Units/ML 3 ML Vial SUBCUT ONE (12:30)
[2020-02-02] MEDS: Pantoprazole 40 MG Vial IVPUSH SCH (13:29)
--- NOTE | 2020-02-02 18:52 | PCM.PN ---
- General Info Date of Service: 02/02/20 Admission Dx/Problem (Free Text): WEakness COVID 19 Functional Status: Reports: Pain Controlled, Tolerating Diet, Ambulating - Review of Systems General: Reports: Weakness, Fatigue, Malaise, Chills HEENT: Reports: Rhinitis. Denies: Ear Pain, Sinus Congestion Pulmonary: Reports: Shortness of Breath (does admit that shortness of breath is better today than yesterday) Cardiovascular: Denies: Chest Pain, Palpitations, Dyspnea on Exertion Gastrointestinal: Denies: Abdominal Pain, Nausea, Vomiting Genitourinary: Reports: No Symptoms Musculoskeletal: Reports: No Symptoms Skin: Reports: No Symptoms Neurological: Reports: Weakness - Patient Data Vitals - Most Recent: Last Vital Signs Temp 98.2 F 02/02/20 16:00 Pulse 82 02/02/20 16:00 Resp 20 02/02/20 16:00 BP 105/43 L 02/02/20 16:00 Pulse Ox 95 02/02/20 16:00 Weight - Most Recent: 185 lb I&O - Last 24 Hours: Intake & Output 02/02/20 02/02/20 02/02/20 06:59 14:59 22:59 Intake Total 827 149 9344 Output Total 550 800 Balance -250 971 200 Lab Results Last 24 Hours: Laboratory Results - last 24 hr 02/01/20 02/02/20 02/02/20 Range/Units 16:07 07:15 07:15 WBC 3.0 L (5.0-10.0) 10^3/uL RBC 5.10 (4.50-6.00) 10^6/uL Hgb 13.5 L (14.0-18.0) g/dL Hct 40.1 (40.0-54.0) % MCV 78.6 L (82.0-94.0) fL MCH 26.5 L (27.0-32.0) pg MCHC 33.7 (33.0-38.0) g/dL RDW Coeff of Hernandez 14.7 (11.0-15.0) % Plt Count 202 (150-400) 10^3/uL Neut % (Auto) 74.0 (35-85) % Lymph % (Auto) 11.2 (10-55) % [place] % (Auto) 14.5 (0-16) % Eos % (Auto) 0 (0-5) % Baso % (Auto) 0.3 (0-3) % Neut # (Auto) 2.24 (1.80-7.00) 10^3/uL Lymph # (Auto) 0.34 L (1.00-4.80) 10^3/uL [place] # (Auto) 0.44 (0.00-0.80) 10^3/uL Eos # (Auto) 0.00 (0.00-0.45) 10^3/uL Baso # (Auto) 0.01 10^3/uL D-Dimer, Quantitative 1.08 H (0.00-0.50) Sodium (136-145) mEq/L Potassium (3.5-5.0) mEq/L Chloride (98-106) mEq/L Carbon Dioxide (21-32) mmol/L BUN (7-18) mg/dL Creatinine (0.7-1.3) mg/dL Est Cr Clr Drug Dosing mL/min Estimated GFR (MDRD) (>=60) mL/min Glucose (75-99) mg/dL POC Glucose (75-105) mg/dl Calcium (8.4-10.1) mg/dL Total Bilirubin (0.0-1.0) mg/dL AST (15-37) U/L ALT (12-78) U/L Alkaline Phosphatase (46-116) U/L Troponin I (0.00-0.06) ng/mL C-Reactive Protein (0.2-0.8) mg/dL Total Protein (6.4-8.2) g/dL Albumin (3.4-5.0) g/dL Urine Color Yellow (YELLOW) Urine Appearance Slightly cloudy (CLEAR) Urine pH 5.5 (4.5-8.0) Ur Specific [place] >= 1.030 H (1.003-1.020) Urine Protein 100 H (NEGATIVE) mg/dL Urine Glucose (UA) Negative (NEGATIVE) mg/dL Urine Ketones 40 H (NEGATIVE) mg/dL Urine Occult Blood Trace-intact H (NEGATIVE) Urine Nitrite Negative (NEGATIVE) Urine Bilirubin Negative (NEGATIVE) Urine Urobilinogen 0.2 (0.2-1.0) EU/dL Ur Leukocyte Esterase Negative (NEGATIVE) Urine RBC 5-10 H (0-5) /HPF Urine WBC 0-5 (0-5) /HPF Ur Squamous Epith Cells Few H (NOT SEEN) /HPF Urine Bacteria Rare (NOT SEEN) /HPF Urine Mucus Few H (NOT SEEN) /HPF 02/02/20 02/02/20 Range/Units 07:15 08:09 WBC (5.0-10.0) 10^3/uL RBC (4.50-6.00) 10^6/uL Hgb (14.0-18.0) g/dL Hct (40.0-54.0) % MCV (82.0-94.0) fL MCH (27.0-32.0) pg MCHC (33.0-38.0) g/dL RDW Coeff of Hernandez (11.0-15.0) % Plt Count (150-400) 10^3/uL Neut % (Auto) (35-85) % Lymph % (Auto) (10-55) % [place] % (Auto) (0-16) % Eos % (Auto) (0-5) % Baso % (Auto) (0-3) % Neut # (Auto) (1.80-7.00) 10^3/uL Lymph # (Auto) (1.00-4.80) 10^3/uL [place] # (Auto) (0.00-0.80) 10^3/uL Eos # (Auto) (0.00-0.45) 10^3/uL Baso # (Auto) 10^3/uL D-Dimer, Quantitative (0.00-0.50) Sodium 131 L (136-145) mEq/L Potassium 4.8 (3.5-5.0) mEq/L Chloride 98 (98-106) mEq/L Carbon Dioxide 21 (21-32) mmol/L BUN 22 H (7-18) mg/dL Creatinine 1.3 (0.7-1.3) mg/dL Est Cr Clr Drug Dosing 43.68 mL/min Estimated GFR (MDRD) 53 L (>=60) mL/min Glucose 333 H* D (75-99) mg/dL POC Glucose 306 H (75-105) mg/dl Calcium 8.3 L (8.4-10.1) mg/dL Total Bilirubin 0.6 (0.0-1.0) mg/dL AST 15 (15-37) U/L ALT 16 (12-78) U/L Alkaline Phosphatase 65 (46-116) U/L Troponin I 0.084 H (0.00-0.06) ng/mL C-Reactive Protein 7.0 H (0.2-0.8) mg/dL Total Protein 6.5 (6.4-8.2) g/dL Albumin 2.6 L (3.4-5.0) g/dL Urine Color (YELLOW) Urine Appearance (CLEAR) Urine pH (4.5-8.0) Ur Specific [place] (1.003-1.020) Urine Protein (NEGATIVE) mg/dL Urine Glucose (UA) (NEGATIVE) mg/dL Urine Ketones (NEGATIVE) mg/dL Urine Occult Blood (NEGATIVE) Urine Nitrite (NEGATIVE) Urine Bilirubin (NEGATIVE) Urine Urobilinogen (0.2-1.0) EU/dL Ur Leukocyte Esterase (NEGATIVE) Urine RBC (0-5) /HPF Urine WBC (0-5) /HPF Ur Squamous Epith Cells (NOT SEEN) /HPF Urine Bacteria (NOT SEEN) /HPF Urine Mucus (NOT SEEN) /HPF Jayme Results Last 24 Hours: Microbiology 02/01/20 11:12 Aerobic Blood Culture - Preliminary Blood - Venous - Lab Draw NO GROWTH AFTER 1 DAY Anaerobic Blood Culture - Preliminary NO GROWTH AFTER 1 DAY 02/01/20 10:59 Aerobic Blood Culture - Preliminary Blood - Venous NO GROWTH AFTER 1 DAY Anaerobic Blood Culture - Preliminary NO GROWTH AFTER 1 DAY Med Orders - Current: Current Medications Acetaminophen (Tylenol) 650 mg PO Q4H PRN PRN Reason: Pain (Mild 1-3)/fever Amlodipine Besylate (Norvasc) 10 mg PO DAILY [facility] Last Admin: 02/02/20 07:56 Dose: 10 mg Documented by: Ascorbic Acid (Vitamin C) 500 mg PO DAILY [facility] Last Admin: 02/02/20 07:56 Dose: 500 mg Documented by: Aspirin (Halfprin) 81 mg PO DAILY [facility] Last Admin: 02/02/20 07:58 Dose: 81 mg Documented by: Cholecalciferol (Vitamin D3) 50 mcg PO DAILY [facility] Last Admin: 02/02/20 07:58 Dose: 50 mcg Documented by: Clonidine HCl (Catapres) 0.1 mg PO BID [facility] Last Admin: 02/02/20 07:58 Dose: 0.1 mg Documented by: Dexamethasone (Dexamethasone) 6 mg PO DAILY [facility] Last Admin: 02/02/20 07:57 Dose: 6 mg Documented by: Enoxaparin Sodium (Lovenox) 40 mg SUBCUT BID [facility] Last Admin: 02/02/20 07:56 Dose: 40 mg Documented by: Fluconazole (Diflucan) 100 mg PO DAILY [facility] Last Admin: 02/02/20 07:58 Dose: 100 mg Documented by: Furosemide (Lasix) 40 mg PO DAILY [facility] Last Admin: 02/02/20 07:58 Dose: 40 mg Documented by: Sodium Chloride (Normal Saline) 1,000 mls @ 50 mls/hr IV ASDIRECTED [facility] Last Admin: 02/02/20 10:02 Dose: 50 mls/hr Documented by: Insulin Glargine (Lantus) 35 unit SUBCUT BEDTIME [facility] Last Admin: 02/01/20 20:09 Dose: 35 units Documented by: Insulin Human Regular (Humulin R) 0 unit SUBCUT DAILY@0730,1130,1700 [facility]; Protocol Last Admin: 02/02/20 18:07 Dose: 15 units Documented by: Ketoconazole (Nizoral 2% Crm) 15 gm TOP DAILY [facility] Last Admin: 02/02/20 11:37 Dose: Not Given Documented by: Lisinopril (Prinivil) 10 mg PO BID [facility] Last Admin: 02/02/20 07:58 Dose: 10 mg Documented by: Metoprolol Succinate (Toprol Xl) 100 mg PO DAILY [facility] Last Admin: 02/02/20 07:58 Dose: 100 mg Documented by: Ondansetron HCl (Zofran Odt) 4 mg PO Q4H PRN PRN Reason: nausea, able to take PO Pantoprazole Sodium (Protonix Iv) 40 mg IVPUSH DAILY@1200 [facility] Simvastatin (Zocor) 40 mg PO DAILY [facility] Last Admin: 02/02/20 07:56 Dose: 40 mg Documented by: Tamsulosin HCl (Flomax) 0.4 mg PO DAILY [facility] Last Admin: 02/02/20 07:56 Dose: 0.4 mg Documented by: Zinc Sulfate (Zincate) 220 mg PO DAILY [facility] Last Admin: 02/02/20 07:56 Dose: 220 mg Documented by: Discontinued Medications Furosemide (Lasix) 40 mg IVPUSH ONETIME ONE Stop: 02/01/20 14:13 Last Admin: 02/01/20 14:38 Dose: 40 mg Documented by: Insulin Glargine (Lantus) 30 unit SUBCUT BEDTIME [facility] Insulin Human Lispro (Humalog) 20 unit SUBCUT ONETIME ONE Stop: 02/02/20 12:31 Last Admin: 02/02/20 13:21 Dose: 20 units Documented by: Insulin Human Regular (Humulin R) 50 unit SUBCUT BIDAC [facility] Last Admin: 02/01/20 18:24 Dose: Not Given Documented by: Insulin Human Regular (Humulin R) 0 unit SUBCUT TID [facility]; Protocol Last Admin: 02/02/20 13:20 Dose: 20 units Documented by: Non-Formulary Medication (Insulin Isophane Nph, Human) 20 units SQ WITHLUNCH [facility] Pantoprazole Sodium (Protonix Iv) 40 mg IVPUSH Q24H [facility] Last Admin: 02/02/20 13:29 Dose: 40 mg Documented by: - Exam General: Alert, Oriented HEENT: Mucous Membr. Moist/[place] Neck: Supple Lungs: Decreased Breath Sounds Cardiovascular: Regular Rate, Regular Rhythm GI/Abdominal Exam: Normal Bowel Sounds, Soft, Non-Tender Extremities: Normal Inspection, No Pedal Edema Skin: Warm, Dry Neurological: No New Focal Deficit Sepsis Event Note - Evaluation Sepsis Screening Result: No Definite Risk - Focused Exam Vital Signs: Vital Signs Temp Pulse Pulse Resp BP BP Pulse Ox 02/02/20 16:00 98.2 F 82 20 105/43 L 95 02/02/20 12:00 97.2 F 72 20 107/85 96 02/02/20 08:59 98.0 F 76 20 152/67 H 95 02/02/20 07:58 98 152/67 H 02/02/20 07:56 152/67 H - Problem List & Annotations (1) Weakness SNOMED Code(s): 90899272 Code(s): R53.1 - WEAKNESS Status: Acute Priority: High Current Visit: Yes (2) COVID-19 SNOMED Code(s): 111530622 Code(s): U07.1 - COVID-19 Status: Acute Priority: High Current Visit: Yes (3) Viral pneumonitis SNOMED Code(s): 71669643 Code(s): J12.9 - VIRAL PNEUMONIA, UNSPECIFIED Status: Acute Priority: High Current Visit: Yes (4) CHF (congestive heart failure) SNOMED Code(s): 90150701 Code(s): I50.9 - HEART FAILURE, UNSPECIFIED Status: Acute Priority: High Current Visit: Yes Qualifiers: Heart failure type: systolic Heart failure chronicity: acute on chronic Qualified Code(s): I50.23 - Acute on chronic systolic (congestive) heart failure (5) Sepsis SNOMED Code(s): 26339437 Code(s): A41.9 - SEPSIS, UNSPECIFIED ORGANISM Status: Acute Priority: High Current Visit: Yes Qualifiers: Sepsis type: sepsis due to unspecified organism Sepsis acute organ dysfunction status: without acute organ dysfunction Qualified Code(s): A41.9 - Sepsis, unspecified organism - Problem List Review Problem List Initiated/Reviewed/Updated: Yes - My Orders Last 24 Hours: My Active Orders 02/01/20 18:25 Blood Glucose Check, Bedside [] 0730,1130,1700,202902/01/20 20:00 Insulin Glarg,Human.Rec.Analog [LantUS] 35 unit SUBCUT BEDTIME cloNIDine [Catapres] 0.1 mg PO BID lisinopriL [Prinivil] 10 mg PO BID 02/01/20 22:16 Incentive Spirometry [RT Incentive Spirometry] [RC] .PRN 02/02/20 08:00 Aspirin [Halfprin] 81 mg PO DAILY Fluconazole [Diflucan] 100 mg PO DAILY Furosemide [Lasix] 40 mg PO DAILY Ketoconazole [Nizoral 2% Crm] 15 gm TOP DAILY Metoprolol Succinate [Toprol XL] 100 mg PO DAILY Simvastatin [Zocor] 40 mg PO DAILY Tamsulosin [Flomax] 0.4 mg PO DAILY Zinc Sulfate [Zincate] 220 mg PO DAILY amLODIPine [Norvasc] 10 mg PO DAILY 02/02/20 13:23 Echo Comp wo Cont [US] Routine 02/02/20 17:00 Insulin Regular, Human [HumuLIN R] 0 unit SUBCUT DAILY@0730,1130,1700 02/03/20 05:11 C-REACTIVE PROTEIN [CHEM] DAILY CBC WITH AUTO DIFF [HEME] DAILY COMPREHENSIVE METABOLIC PN,CMP [CHEM] DAILY D-DIMER QUANTITATIVE [COAG] DAILY 02/03/20 12:00 Pantoprazole [ProTONIX IV] 40 mg IVPUSH DAILY@1200 02/04/20 05:11 C-REACTIVE PROTEIN [CHEM] DAILY CBC WITH AUTO DIFF [HEME] DAILY COMPREHENSIVE METABOLIC PN,CMP [CHEM] DAILY D-DIMER QUANTITATIVE [COAG] DAILY - Assessment Assessment:: Weakness COVID 19 CHF Sepsis - Plan Plan:: Patient admits to feeling better today. Was able to eat breakfast today without nausea. Ambulating to and from bathroom, feels stronger. Less shortness of breath. Occasional cough. Does void frequently, every 30 minutes or so. Still having loose stools this am. No fevers. Oxygen sats 95%. Sodium 131 today. Troponin remains indeterminate. CRP at 7.0. Will obtain echo this am. Stop IV fluids as oral intake has improved. Continue Lasix. Repeat labs in am.
[2020-02-02] MEDS: Insulin Glarg,Human.Rec.Analog 100 Unit/ML SUBCUT SCH (19:47)
[2020-02-03] MEDS: Cholecalciferol (Vitamin D3) 25 MCG Tab PO SCH (07:49)
[2020-02-03] MEDS: Enoxaparin 40 MG/0.4 ML Syringe SUBCUT SCH ×2 (07:49→20:22)
[2020-02-03] MEDS: Zinc Sulfate 220 MG Cap PO SCH (07:50)
[2020-02-03] MEDS: Fluconazole 100 MG Tab PO SCH (07:50)
[2020-02-03] MEDS: Simvastatin 40 MG Tab PO SCH (07:50)
[2020-02-03] MEDS: Dexamethasone 4 MG Tab PO SCH (07:50)
[2020-02-03] MEDS: cloNIDine 0.1 MG Tab PO SCH ×2 (07:51→20:24)
[2020-02-03] MEDS: Ascorbic Acid 500 MG Tab PO SCH (08:00)
[2020-02-03] MEDS: Metoprolol Succinate 100 MG Tab.ER PO SCH (08:00)
[2020-02-03] MEDS: amLODIPine 10 MG Tab PO SCH (08:01)
[2020-02-03] MEDS: Tamsulosin 0.4 MG Cap.ER PO SCH (08:01)
[2020-02-03] MEDS: Aspirin 81 MG Tab.EC PO SCH (08:01)
[2020-02-03] MEDS: Lisinopril 10 MG Tab PO SCH ×2 (08:01→20:24)
[2020-02-03] MEDS: Furosemide 40 MG Tab PO SCH (08:01)
[2020-02-03] MEDS: Insulin Regular, Human 100 Units/ML 3 ML Vial SUBCUT SCH ×3 (08:19→17:37)
[2020-02-03] MEDS: Ketoconazole 15 GM TUBE TOP SCH (08:20)
[2020-02-03] MEDS: Pantoprazole 40 MG Vial IVPUSH SCH (13:00)
[2020-02-03] MEDS: Insulin Glarg,Human.Rec.Analog 100 Unit/ML SUBCUT SCH (20:32)
--- NOTE | 2020-02-03 20:40 | PCM.PN ---
- General Info Date of Service: 02/03/20 Admission Dx/Problem (Free Text): WEakness COVID 19 Subjective Update: Marino is an 84 yo male who was admitted 02/01/2020 with weakness and covid 19. Was also found to have elevated proBNP. Questionable viral induced myocarditis as cause of acute CHF. Patient without history of CHF and proBNP > 5000. He did receive a dose of IV lasix and now has been on 40 mg PO lasix daily and has diuresed well. He reports no ongoing shortness of breath. He reports he is feeling much better this morning and wishes to go home as "the rooms are cold." He offers up no additional complaints. He is very [place] so difficult to communicate with. Communication done via writing on paper. Functional Status: Reports: Pain Controlled, Tolerating Diet, Ambulating, Urinating. Denies: New Symptoms - Review of Systems General: Reports: Weakness, Fatigue. Denies: Fever, Malaise HEENT: Reports: No Symptoms Pulmonary: Reports: Cough (ocassional) Cardiovascular: Reports: Dyspnea on Exertion. Denies: Chest Pain, Edema Gastrointestinal: Reports: No Symptoms. Denies: Diarrhea Genitourinary: Reports: No Symptoms Musculoskeletal: Reports: No Symptoms Skin: Reports: No Symptoms Neurological: Reports: No Symptoms Psychiatric: Reports: No Symptoms - Patient Data Vitals - Most Recent: Last Vital Signs Temp 98.6 F 02/03/20 16:00 Pulse 84 02/03/20 16:00 Resp 18 02/03/20 16:00 BP 123/51 L 02/03/20 20:24 Pulse Ox 96 02/03/20 16:00 Weight - Most Recent: 185 lb I&O - Last 24 Hours: Intake & Output 02/03/20 02/03/20 02/03/20 06:59 14:59 22:59 Intake Total 937 818 9155 Output Total 550 1500 Balance -50 400 -300 Lab Results Last 24 Hours: Laboratory Results - last 24 hr 02/03/20 02/03/20 02/03/20 Range/Units 05:11 07:00 07:00 WBC 11.2 H (5.0-10.0) 10^3/uL RBC 5.08 (4.50-6.00) 10^6/uL Hgb 13.6 L (14.0-18.0) g/dL Hct 40.1 (40.0-54.0) % MCV 78.9 L (82.0-94.0) fL MCH 26.8 L (27.0-32.0) pg MCHC 33.9 (33.0-38.0) g/dL RDW Coeff of Hernandez 14.9 (11.0-15.0) % Plt Count 254 (150-400) 10^3/uL Neut % (Auto) 87.7 H (35-85) % Lymph % (Auto) 3.8 L (10-55) % [place] % (Auto) 8.4 (0-16) % Eos % (Auto) 0 (0-5) % Baso % (Auto) 0.1 (0-3) % Neut # (Auto) 9.83 H (1.80-7.00) 10^3/uL Lymph # (Auto) 0.43 L (1.00-4.80) 10^3/uL [place] # (Auto) 0.94 H (0.00-0.80) 10^3/uL Eos # (Auto) 0.00 (0.00-0.45) 10^3/uL Baso # (Auto) 0.01 10^3/uL D-Dimer, Quantitative 0.85 H (0.00-0.50) Sodium 135 L (136-145) mEq/L Potassium 4.4 (3.5-5.0) mEq/L Chloride 100 (98-106) mEq/L Carbon Dioxide 24 (21-32) mmol/L BUN 27 H (7-18) mg/dL Creatinine 1.3 (0.7-1.3) mg/dL Est Cr Clr Drug Dosing 43.68 mL/min Estimated GFR (MDRD) 53 L (>=60) mL/min Glucose 222 H D (75-99) mg/dL Calcium 8.5 (8.4-10.1) mg/dL Total Bilirubin 0.5 (0.0-1.0) mg/dL AST 17 (15-37) U/L ALT 17 (12-78) U/L Alkaline Phosphatase 71 (46-116) U/L C-Reactive Protein 3.5 H (0.2-0.8) mg/dL Total Protein 6.7 (6.4-8.2) g/dL Albumin 2.8 L (3.4-5.0) g/dL Jayme Results Last 24 Hours: Microbiology 02/01/20 11:12 Aerobic Blood Culture - Preliminary Blood - Venous - Lab Draw NO GROWTH AFTER 2 DAYS Anaerobic Blood Culture - Preliminary NO GROWTH AFTER 2 DAYS 02/01/20 10:59 Aerobic Blood Culture - Preliminary Blood - Venous NO GROWTH AFTER 2 DAYS Anaerobic Blood Culture - Preliminary NO GROWTH AFTER 2 DAYS Med Orders - Current: Current Medications Acetaminophen (Tylenol) 650 mg PO Q4H PRN PRN Reason: Pain (Mild 1-3)/fever Amlodipine Besylate (Norvasc) 10 mg PO DAILY [facility] Last Admin: 02/03/20 08:01 Dose: 10 mg Documented by: Ascorbic Acid (Vitamin C) 500 mg PO DAILY [facility] Last Admin: 02/03/20 08:00 Dose: 500 mg Documented by: Aspirin (Halfprin) 81 mg PO DAILY [facility] Last Admin: 02/03/20 08:01 Dose: 81 mg Documented by: Cholecalciferol (Vitamin D3) 50 mcg PO DAILY [facility] [place] Last Admin: 02/03/20 07:49 Dose: 50 mcg Documented by: Clonidine HCl (Catapres) 0.1 mg PO BID [facility] [place] Last Admin: 02/03/20 20:24 Dose: 0.1 mg Documented by: Dexamethasone (Dexamethasone) 6 mg PO DAILY [facility] [place] Last Admin: 02/03/20 07:50 Dose: 6 mg Documented by: Enoxaparin Sodium (Lovenox) 40 mg SUBCUT BID [facility] Last Admin: 02/03/20 20:22 Dose: 40 mg Documented by: Fluconazole (Diflucan) 100 mg PO DAILY [facility] Last Admin: 02/03/20 07:50 Dose: 100 mg Documented by: Furosemide (Lasix) 40 mg PO DAILY [facility] [place] Last Admin: 02/03/20 08:01 Dose: 40 mg Documented by: Insulin Glargine (Lantus) 35 unit SUBCUT BEDTIME [facility] [place] Last Admin: 02/03/20 20:32 Dose: 35 units Documented by: Insulin Human Regular (Humulin R) 0 unit SUBCUT DAILY@0730,1130,1700 [facility] [place]; Protocol Last Admin: 02/03/20 17:37 Dose: 15 units Documented by: Ketoconazole (Nizoral 2% Crm) 15 gm TOP DAILY [facility] [place] Last Admin: 02/03/20 08:20 Dose: Not Given Documented by: Lisinopril (Prinivil) 10 mg PO BID [facility] [place] Last Admin: 02/03/20 20:24 Dose: 10 mg Documented by: Metoprolol Succinate (Toprol Xl) 100 mg PO DAILY [facility] [place] Last Admin: 02/03/20 08:00 Dose: 100 mg Documented by: Ondansetron HCl (Zofran Odt) 4 mg PO Q4H PRN PRN Reason: nausea, able to take PO Pantoprazole Sodium (Protonix Iv) 40 mg IVPUSH DAILY@1200 [facility] [place] Last Admin: 02/03/20 13:00 Dose: 40 mg Documented by: Simvastatin (Zocor) 40 mg PO DAILY [facility] [place] Last Admin: 02/03/20 07:50 Dose: 40 mg Documented by: Tamsulosin HCl (Flomax) 0.4 mg PO DAILY [facility] [place] Last Admin: 02/03/20 08:01 Dose: 0.4 mg Documented by: Zinc Sulfate (Zincate) 220 mg PO DAILY [facility] [place] Last Admin: 02/03/20 07:50 Dose: 220 mg Documented by: Discontinued Medications Furosemide (Lasix) 40 mg IVPUSH ONETIME ONE Stop: 02/01/20 14:13 Last Admin: 02/01/20 14:38 Dose: 40 mg Documented by: Sodium Chloride (Normal Saline) 1,000 mls @ 50 mls/hr IV ASDIRECTED [facility] [place] Last Admin: 02/02/20 10:02 Dose: 50 mls/hr Documented by: Insulin Glargine (Lantus) 30 unit SUBCUT BEDTIME [facility] [place] Insulin Human Lispro (Humalog) 20 unit SUBCUT ONETIME ONE Stop: 02/02/20 12:31 Last Admin: 02/02/20 13:21 Dose: 20 units Documented by: Insulin Human Regular (Humulin R) 50 unit SUBCUT BIDAC [facility] [place] Last Admin: 02/01/20 18:24 Dose: Not Given Documented by: Insulin Human Regular (Humulin R) 0 unit SUBCUT TID [facility]; Protocol Last Admin: 02/02/20 13:20 Dose: 20 units Documented by: Non-Formulary Medication (Insulin Isophane Nph, Human) 20 units SQ WITHLUNCH [facility] [place] Pantoprazole Sodium (Protonix Iv) 40 mg IVPUSH Q24H [facility] [place] Last Admin: 10/26/20 13:29 Dose: 40 mg Documented by: - Exam Quality Assessment: DVT Prophylaxis. No: Supplemental Oxygen General: Alert, Oriented, No Acute Distress HEENT: Pupils Equal, Pupils Reactive, EOMI, Mucous Membr. Moist/[place] Neck: Supple Lungs: Normal Respiratory Effort, Wheezing (inspiratory wheezing throughout) Cardiovascular: Regular Rate, Regular Rhythm, Other (frequent PVCs) GI/Abdominal Exam: Normal Bowel Sounds, Soft, Non-Tender, No Organomegaly, No Distention, No Abnormal Bruit, No Mass, Pelvis Stable Back Exam: Normal Inspection, Full Range of Motion Extremities: Normal Inspection, Normal Range of Motion, Non-Tender, No Pedal Edema, Normal Capillary Refill Neurological: No New Focal Deficit Psy/Mental Status: Alert, Normal Affect, Normal Mood Sepsis Event Note - Evaluation Sepsis Screening Result: No Definite Risk - Focused Exam Vital Signs: Vital Signs Temp Pulse Resp BP BP Pulse Ox 02/03/20 20:24 123/51 L 02/03/20 16:00 98.6 F 84 18 130/60 96 02/03/20 12:00 97.8 F 82 18 121/53 L 97 - Problem List & Annotations (1) CHF (congestive heart failure) SNOMED Code(s): 46564543 Code(s): I50.9 - HEART FAILURE, UNSPECIFIED Status: Acute Priority: High Current Visit: Yes Qualifiers: Heart failure type: systolic Heart failure chronicity: acute on chronic Qualified Code(s): I50.23 - Acute on chronic systolic (congestive) heart failure (2) COVID-19 SNOMED Code(s): 488753617 Code(s): U07.1 - COVID-19 Status: Acute Priority: High Current Visit: Yes (3) Viral pneumonitis SNOMED Code(s): 41700678 Code(s): J12.9 - VIRAL PNEUMONIA, UNSPECIFIED Status: Acute Priority: High Current Visit: Yes (4) Weakness SNOMED Code(s): 97649614 Code(s): R53.1 - WEAKNESS Status: Acute Priority: High Current Visit: Yes (5) Sepsis SNOMED Code(s): 31812083 Code(s): A41.9 - SEPSIS, UNSPECIFIED ORGANISM Status: Acute Priority: High Current Visit: Yes Qualifiers: Sepsis acute organ dysfunction status: without acute organ dysfunction - Problem List Review Problem List Initiated/Reviewed/Updated: Yes - My Orders Last 24 Hours: My Active Orders 02/04/20 07:00 PRO B-TYPE NATRIUR PEPT,BNPPRO [CHEM] Routine - Assessment Assessment:: Weakness COVID 19 CHF Sepsis - Plan Plan:: Patient admits to feeling better today. Was able to eat breakfast today without nausea. Ambulating to and from bathroom, feels stronger. Less shortness of breath. Occasional cough. Does void frequently, every 30 minutes or so. Still having loose stools this am. No fevers. Oxygen sats 95%. Sodium 131 today. Troponin remains indeterminate. CRP at 7.0. Will obtain echo this am. Stop IV fluids as oral intake has improved. Continue Lasix. Repeat labs in am. 02/03/2020 Patient reports he is feeling much better this morning. Has been eating and drinking without difficulty. Denies any shortness of breath. Does continue to have inspiratory wheezes throughout. Occasional cough. Voids small amounts frequently, which is a chronic issue for him. Has been having less loose stools. VSS on RA. Awaiting echo results. Continue with lasix. CXR did reveal viral pneumonitis. O2 sats > 92% on RA. Continue with dex amethasone and zinc. WBC up to 11.2. Blood cultures remain negative. D-dimer trending down. Na improved to 135. Creatinine improved from 1.6 to 1.3. CRP down to 3.5. Will repeat labs in am. Anticipate discharge home tomorrow if patient continues to feel improved.
[2020-02-04 08:58] VITALS: BP 151/60
[2020-02-04] MEDS: Enoxaparin 40 MG/0.4 ML Syringe SUBCUT SCH (09:02)
[2020-02-04] MEDS: Furosemide 40 MG Tab PO SCH (09:03)
[2020-02-04] MEDS: cloNIDine 0.1 MG Tab PO SCH (09:03)
[2020-02-04] MEDS: Aspirin 81 MG Tab.EC PO SCH (09:03)
[2020-02-04] MEDS: Cholecalciferol (Vitamin D3) 25 MCG Tab PO SCH (09:04)
[2020-02-04] MEDS: Lisinopril 10 MG Tab PO SCH (09:04)
[2020-02-04] MEDS: Dexamethasone 4 MG Tab PO SCH (09:04)
[2020-02-04] MEDS: Ascorbic Acid 500 MG Tab PO SCH (09:05)
[2020-02-04] MEDS: amLODIPine 10 MG Tab PO SCH (09:05)
[2020-02-04] MEDS: Zinc Sulfate 220 MG Cap PO SCH (09:05)
[2020-02-04] MEDS: Metoprolol Succinate 100 MG Tab.ER PO SCH (09:05)
[2020-02-04] MEDS: Fluconazole 100 MG Tab PO SCH (09:05)
[2020-02-04] MEDS: Simvastatin 40 MG Tab PO SCH (09:05)
[2020-02-04] MEDS: Tamsulosin 0.4 MG Cap.ER PO SCH (09:05)
[2020-02-04] MEDS: Insulin Regular, Human 100 Units/ML 3 ML Vial SUBCUT SCH ×2 (09:09→12:28)
[2020-02-04] MEDS: Ketoconazole 15 GM TUBE TOP SCH (09:11)
--- NOTE | 2020-02-04 11:01 | PCM.DCSUM1 ---
Discharge Summary - Hospital Course Free Text/Narrative:: Marino is an 84 yo male who was admitted to the hospital 02/01/2020 for Covid-19 induced viral pneumonitis, weakness, and acute CHF. He was diagnosed with Covid- 19 approximately 2 weeks prior. Had been doing well but had developed worsening weakness and shortness of breath over the last few days prior to presentation. Sodium was found to be low at 130. Creatinine was 1.6. Lactic acid was 3.1. CRP was 6.4. Patient was admitted and started on dexamethasone and Normal saline. Chest xray showed worsening infiltrate. Pro-BNP was elevated to >5000. Echocardiogram was obtained and revealed EF 50-55%. Throughout hospital stay, patient reports his nausea/vomiting improved. He was ambulating in the room without difficulty. Was eating full diet without issue. His shortness of breath did improve. His VS were stable on RA throughout stay. At time of discharge labs improved. WBC was 7.7. D-dimer 0.85. Na improved to 133. ProBNP was 4736. CRP improved to 2.4. Patient was anxious to discharge home. He is discharged home in satisfactory condition. He will continue on lasix 40 mg daily. He will finish out remainder of dexamethasone course. He is advised to follow up in clinic with myself, his PCP, on Sunday. We will repeat lab work at that time. - Discharge Data Discharge Date: 02/04/20 Discharge Disposition: Home, Self-Care 01 Condition: Fair - Referral to Home Health Primary Care Physician: Shalini Perez NP - Discharge Diagnosis/Problem(s) (1) CHF (congestive heart failure) SNOMED Code(s): 29689287 ICD Code: I50.9 - HEART FAILURE, UNSPECIFIED Status: Acute Priority: High Qualifiers: Heart failure type: systolic Heart failure chronicity: acute on chronic Qualified Code(s): I50.23 - Acute on chronic systolic (congestive) heart failure (2) COVID-19 SNOMED Code(s): 675494837 ICD Code: U07.1 - COVID-19 Status: Acute Priority: High (3) Viral pneumonitis SNOMED Code(s): 19866759 ICD Code: J12.9 - VIRAL PNEUMONIA, UNSPECIFIED Status: Acute Priority: High (4) Weakness SNOMED Code(s): 91643261 ICD Code: R53.1 - WEAKNESS Status: Acute Priority: High (5) Sepsis SNOMED Code(s): 54970920 ICD Code: A41.9 - SEPSIS, UNSPECIFIED ORGANISM Status: Acute Priority: High Qualifiers: Sepsis acute organ dysfunction status: without acute organ dysfunction - Patient Instructions Diet: Diabetic Diet Activity: As Tolerated, Cough & Deep Breathe Notify Provider of: Fever, Increased Pain, Nausea and/or Vomiting - Discharge Plan *PRESCRIPTION DRUG MONITORING PROGRAM REVIEWED*: No *COPY OF PRESCRIPTION DRUG MONITORING REPORT IN PATIENT AYAH: No Prescriptions/Med Rec: dexAMETHasone [Dexamethasone] 6 mg PO DAILY 3 Days #3 tablet Furosemide [Lasix] 40 mg PO DAILY 90 Days #90 tablet Zinc Sulfate [Zincate] 220 mg PO DAILY #30 cap Home Medications: Home Meds Benazepril [Lotensin] 10 mg PO BID 01/25/17 [History] Insulin Detemir [Levemir Flextouch] 30 unit SQ BEDTIME 01/25/17 [History] Insulin NPH/Insulin Reg,Human [HumuLIN 70-30] 50 units SUBCUT BIDAC 01/25/17 [History] Simvastatin [Zocor] 40 mg PO DAILY 01/25/17 [History] Aspirin [Ecotrin EC] 81 mg PO DAILY 10/31/19 [History] Insulin Isophane NPH, Human [HumuLIN N] 20 units SQ WITHLUNCH 10/31/19 [History] Metoprolol Succinate [Toprol XL 100mg] 100 mg PO DAILY 10/31/19 [History] Ketoconazole [Nizoral 2% Crm] 1 each TOP DAILY 12/11/19 [History] Tamsulosin HCl 0.4 mg PO DAILY 12/11/19 [History] Fluconazole [Diflucan] 100 mg PO DAILY 02/01/20 [History] Ondansetron [Zofran ODT] 4 mg PO Q6H PRN 02/01/20 [History] amLODIPine [Norvasc] 10 mg PO DAILY 02/01/20 [History] cloNIDine HCL [Clonidine HCl] 0.1 mg PO BID 02/01/20 [History] Furosemide [Lasix] 40 mg PO DAILY 90 Days #90 tablet 02/04/20 [Rx] Zinc Sulfate [Zincate] 220 mg PO DAILY #30 cap 02/04/20 [Rx] dexAMETHasone [Dexamethasone] 6 mg PO DAILY 3 Days #3 tablet 10/28/20 [Rx] Oxygen Therapy Mode: Room Air Patient Handouts: Heart Failure, Diagnosis, [id number] Forms: ED Department Discharge Referrals: Shalini Perez NP [Primary Care Provider] - - Discharge Summary/Plan Comment DC Time >30 min.: No - General Info Date of Service: 02/04/20 Admission Dx/Problem (Free Text: WEakness COVID 19 Subjective Update: Marino reports he is feeling much better this morning. Is very [facility] so conversation is done with writing on paper. He reports no more loose stools. Denies any shortness of breath. Has been afebrile. Reports appetite and energy are improved. Functional Status: Reports: Pain Controlled, Tolerating Diet, Ambulating, Urinating. Denies: New Symptoms - Review of Systems General: Reports: Weakness, Fatigue. Denies: Fever, Chills HEENT: Reports: No Symptoms Pulmonary: Reports: Cough. Denies: Shortness of Breath Cardiovascular: Reports: Dyspnea on Exertion. Denies: Chest Pain, Edema, Lightheadedness Gastrointestinal: Denies: Abdominal Pain, Decreased Appetite, Diarrhea, Nausea, Vomiting Genitourinary: Reports: Frequency Musculoskeletal: Reports: No Symptoms Skin: Reports: No Symptoms Neurological: Reports: No Symptoms Psychiatric: Reports: No Symptoms - Patient Data Vitals - Most Recent: Last Vital Signs Temp 98.1 F 02/04/20 08:00 Pulse 94 02/04/20 09:05 Resp 18 02/04/20 08:00 BP 151/60 H 02/04/20 09:05 Pulse Ox 98 02/04/20 08:00 Weight - Most Recent: 185 lb I&O - Last 24 hours: Intake & Output 02/03/20 02/04/20 02/04/20 22:59 06:59 14:59 Intake Total 1440 450 100 Output Total 1900 900 325 Balance -460 450 -225 Lab Results - Last 24 hrs: Laboratory Results - last 24 hr 02/04/20 02/04/20 02/04/20 Range/Units 05:11 05:11 05:11 WBC 7.7 (5.0-10.0) 10^3/uL RBC 5.09 (4.50-6.00) 10^6/uL Hgb 13.3 L (14.0-18.0) g/dL Hct 39.9 L (40.0-54.0) % MCV 78.4 L (82.0-94.0) fL MCH 26.1 L (27.0-32.0) pg MCHC 33.3 (33.0-38.0) g/dL RDW Coeff of Hernandez 14.7 (11.0-15.0) % Plt Count 235 (150-400) 10^3/uL Neut % (Auto) 82.1 (35-85) % Lymph % (Auto) 7.4 L (10-55) % [place] % (Auto) 10.4 (0-16) % Eos % (Auto) 0 (0-5) % Baso % (Auto) 0.1 (0-3) % Neut # (Auto) 6.34 (1.80-7.00) 10^3/uL Lymph # (Auto) 0.57 L (1.00-4.80) 10^3/uL [place] # (Auto) 0.80 (0.00-0.80) 10^3/uL Eos # (Auto) 0.00 (0.00-0.45) 10^3/uL Baso # (Auto) 0.01 10^3/uL D-Dimer, Quantitative 0.85 H (0.00-0.50) Sodium 133 L (136-145) mEq/L Potassium 4.1 (3.5-5.0) mEq/L Chloride 98 (98-106) mEq/L Carbon Dioxide 25 (21-32) mmol/L BUN 27 H (7-18) mg/dL Creatinine 1.3 (0.7-1.3) mg/dL Est Cr Clr Drug Dosing 43.68 mL/min Estimated GFR (MDRD) 53 L (>=60) mL/min Glucose 290 H D (75-99) mg/dL Calcium 8.5 (8.4-10.1) mg/dL Total Bilirubin 0.6 (0.0-1.0) mg/dL AST 14 L (15-37) U/L ALT 14 (12-78) U/L Alkaline Phosphatase 74 (46-116) U/L C-Reactive Protein 2.4 H (0.2-0.8) mg/dL NT-Pro-B Natriuret Pep 4736 H (0-1000) pg/mL Total Protein 6.5 (6.4-8.2) g/dL Albumin 2.6 L (3.4-5.0) g/dL BRANDON Results - Last 24 hrs: Microbiology 02/01/20 11:12 Aerobic Blood Culture - Preliminary Blood - Venous - Lab Draw NO GROWTH AFTER 2 DAYS Anaerobic Blood Culture - Preliminary NO GROWTH AFTER 2 DAYS 02/01/20 10:59 Aerobic Blood Culture - Preliminary Blood - Venous NO GROWTH AFTER 2 DAYS Anaerobic Blood Culture - Preliminary NO GROWTH AFTER 2 DAYS Med Orders - Current: Current Medications Acetaminophen (Tylenol) 650 mg PO Q4H PRN PRN Reason: Pain (Mild 1-3)/fever Amlodipine Besylate (Norvasc) 10 mg PO DAILY [facility] Last Admin: 02/04/20 09:05 Dose: 10 mg Documented by: Ascorbic Acid (Vitamin C) 500 mg PO DAILY [facility] Last Admin: 02/04/20 09:05 Dose: 500 mg Documented by: Aspirin (Halfprin) 81 mg PO DAILY [facility] Last Admin: 02/04/20 09:03 Dose: 81 mg Documented by: Cholecalciferol (Vitamin D3) 50 mcg PO DAILY [facility] Last Admin: 02/04/20 09:04 Dose: 50 mcg Documented by: Clonidine HCl (Catapres) 0.1 mg PO BID [facility] Last Admin: 02/04/20 09:03 Dose: 0.1 mg Documented by: Dexamethasone (Dexamethasone) 6 mg PO DAILY [facility] Last Admin: 02/04/20 09:04 Dose: 6 mg Documented by: Enoxaparin Sodium (Lovenox) 40 mg SUBCUT BID [facility] Last Admin: 02/04/20 09:02 Dose: 40 mg Documented by: Fluconazole (Diflucan) 100 mg PO DAILY [facility] Last Admin: 02/04/20 09:05 Dose: 100 mg Documented by: Furosemide (Lasix) 40 mg PO DAILY [facility] Last Admin: 02/04/20 09:03 Dose: 40 mg Documented by: Insulin Glargine (Lantus) 35 unit SUBCUT BEDTIME [facility] Last Admin: 02/03/20 20:32 Dose: 35 units Documented by: Insulin Human Regular (Humulin R) 0 unit SUBCUT DAILY@0730,1130,1700 [facility]; Protocol Last Admin: 02/04/20 09:09 Dose: 9 units Documented by: Ketoconazole (Nizoral 2% Crm) 15 gm TOP DAILY [facility] Last Admin: 02/04/20 09:11 Dose: Not Given Documented by: Lisinopril (Prinivil) 10 mg PO BID [facility] Last Admin: 02/04/20 09:04 Dose: 10 mg Documented by: Metoprolol Succinate (Toprol Xl) 100 mg PO DAILY [facility] Last Admin: 02/04/20 09:05 Dose: 100 mg Documented by: Ondansetron HCl (Zofran Odt) 4 mg PO Q4H PRN PRN Reason: nausea, able to take PO Pantoprazole Sodium (Protonix Iv) 40 mg IVPUSH DAILY@1200 [facility] Last Admin: 02/03/20 13:00 Dose: 40 mg Documented by: Simvastatin (Zocor) 40 mg PO DAILY [facility] Last Admin: 02/04/20 09:05 Dose: 40 mg Documented by: Tamsulosin HCl (Flomax) 0.4 mg PO DAILY [facility] Last Admin: 02/04/20 09:05 Dose: 0.4 mg Documented by: Zinc Sulfate (Zincate) 220 mg PO DAILY [facility] Last Admin: 02/04/20 09:05 Dose: 220 mg Documented by: Discontinued Medications Furosemide (Lasix) 40 mg IVPUSH ONETIME ONE Stop: 02/01/20 14:13 Last Admin: 02/01/20 14:38 Dose: 40 mg Documented by: Sodium Chloride (Normal Saline) 1,000 mls @ 50 mls/hr IV ASDIRECTED [facility] Last Admin: 02/02/20 10:02 Dose: 50 mls/hr Documented by: Insulin Glargine (Lantus) 30 unit SUBCUT BEDTIME [facility] Insulin Human Lispro (Humalog) 20 unit SUBCUT ONETIME ONE Stop: 02/02/20 12:31 Last Admin: 02/02/20 13:21 Dose: 20 units Documented by: Insulin Human Regular (Humulin R) 50 unit SUBCUT BIDAC [facility] Last Admin: 02/01/20 18:24 Dose: Not Given Documented by: Insulin Human Regular (Humulin R) 0 unit SUBCUT TID [facility]; Protocol Last Admin: 02/02/20 13:20 Dose: 20 units Documented by: Non-Formulary Medication (Insulin Isophane Nph, Human) 20 units SQ WITHLUNCH [facility] Pantoprazole Sodium (Protonix Iv) 40 mg IVPUSH Q24H [facility] Last Admin: 02/02/20 13:29 Dose: 40 mg Documented by: - Exam Quality Assessment: Reports: DVT Prophylaxis. Denies: Supplemental Oxygen General: Reports: Alert, Oriented, No Acute Distress Neck: Reports: Supple Lungs: Reports: Normal Respiratory Effort, Decreased Breath Sounds, Wheezing (inspiratory) Cardiovascular: Reports: Regular Rate, Regular Rhythm GI/Abdominal Exam: Normal Bowel Sounds, Soft, Non-Tender, No Organomegaly, No Distention, No Abnormal Bruit, No Mass, Pelvis Stable Extremities: Normal Inspection, Normal Range of Motion, Non-Tender, No Pedal Edema, Normal Capillary Refill Neurological: Reports: No New Focal Deficit Psy/Mental Status: Reports: Alert, Normal Affect, Normal Mood
[2020-02-04 11:24] VITALS: PULSE 67
[2020-02-04] MEDS: Pantoprazole 40 MG Vial IVPUSH SCH (12:31)
== END 2020-02-04 13:15 | disposition home or self-care (01) | DRG 871 ==
LOC: CC.ED 10:34 → INTOOBSV 11:45 → UNDOADMOB 11:45 → OBSVTOIN 11:45 → CC.MS 11:45 → OBSVTOIN 14:05
PROVIDERS: ADMIT Physician Assistant Medical; ATTEND Family Medicine
DX: A41.9 Sepsis, unspecified organism (principal); U07.1 COVID-19; H91.90 Unspecified hearing loss, unspecified ear; J12.89 Other viral pneumonia; I10 Essential (primary) hypertension; I50.23 Acute on chronic systolic (congestive) heart failure; E78.00 Pure hypercholesterolemia, unspecified; I11.0 Hypertensive heart disease with heart failure; I51.4 Myocarditis, unspecified; N42.9 Disorder of prostate, unspecified; E11.9 Type 2 diabetes mellitus without complications; Z79.4 Long term (current) use of insulin; Z79.82 Long term (current) use of aspirin; Z79.899 Other long term (current) drug therapy; Z87.440 Personal history of urinary (tract) infections; Z86.14 Personal history of Methicillin resistant Staphylococcus aureus infection
CPT/HCPCS: 36415; 71046; 80053; 81001; 82962; 83605; 83735; 83880; 84484; 85025; 85379; 85610; 86140; 87040; 93005; 93306; 96374; 99285-25; A9270-GY; C9113; J1650; J1815-GY; J1940; J7030; J8540

== ENCOUNTER 2020-02-12 02:10 | Emergency (ER) | payer MEDICARE, BC ==
--- NOTE | 2020-02-12 03:11 | EDM.PDOC ---
ED HPI GENERAL MEDICAL PROBLEM - General Chief Complaint: Abdominal Pain Stated Complaint: "my stomach is hurting" Time Seen by Provider: 02/12/20 02:41 Source of Information: Reports: Patient History Limitations: Reports: No Limitations - History of Present Illness INITIAL COMMENTS - FREE TEXT/NARRATIVE: Patient presents to ER with complaints of lower quadrant abdominal pain. States has been dealing with this for several days, worse again this am. He was seen by Shalini 2 days ago. Had labs and felt was dealing with diverticulitis. Was started on Cipro and Flagyl. Was doing better during the day but now pain has gotten worse again. Rates his pain at a 6. Does continue to have urinary frequency and incontinence. Does have burning with urination. Has only had one small stool in the last 2 days. No fevers. Has been eating. No nausea or vomiting. Onset: Gradual Duration: Hour(s):, Waxing/Waning Location: Reports: Abdomen Quality: Reports: Sharp Severity: Moderate Improves with: Reports: None Associated Symptoms: Denies: Confusion, Chest Pain, Cough, Fever/Chills, Loss of Appetite, Nausea/Vomiting, Shortness of Breath, Syncope Treatments MANAGER TRANSPORTATION: Reports: Other Medication(s) (cipro and flagyl) Lower Abdomen Pain Score (Numeric/FACES): 7 - Related Data Allergies Allergy/AdvReac Type Severity Reaction Status Date / Time No Known Allergies Allergy Verified 02/01/20 13:27 Home Meds: Home Meds Benazepril [Lotensin] 10 mg PO BID 01/25/17 [History] Insulin Detemir [Levemir Flextouch] 30 unit SQ BEDTIME 01/25/17 [History] Simvastatin [Zocor] 40 mg PO DAILY 01/25/17 [History] Aspirin [Ecotrin EC] 81 mg PO DAILY 10/31/19 [History] Insulin Isophane NPH, Human [HumuLIN N] 20 units SQ WITHLUNCH 10/31/19 [History] Metoprolol Succinate [Toprol XL 100mg] 100 mg PO DAILY 10/31/19 [History] Tamsulosin HCl 0.4 mg PO DAILY 12/11/19 [History] amLODIPine [Norvasc] 10 mg PO DAILY 02/01/20 [History] cloNIDine HCL [Clonidine HCl] 0.1 mg PO BID 02/01/20 [History] Ciprofloxacin HCl [Cipro] 500 mg PO Q12H 02/12/20 [History] Furosemide [Lasix] 20 mg PO DAILY 02/12/20 [History] Insulin Isophane NPH, Human [HumuLIN N] 25 units SQ BID 02/12/20 [History] metroNIDAZOLE [Metronidazole] 500 mg PO BID 02/12/20 [History] Past Medical History HEENT History: Reports: Hard of Hearing Cardiovascular History: Reports: High Cholesterol, Hypertension Genitourinary History: Reports: Prostate Disorder, UTI, Recurrent Endocrine/Metabolic History: Reports: Diabetes, Type II - Infectious Disease History Infectious Disease History: Reports: MRSA, Novel Coronavirus Other Infectious Disease History: left wrist incision 01/02/18 - Past Surgical History HEENT Surgical History: Reports: None Social & Family History - Family History Family Medical History: Noncontributory Cardiac: Reports: Hypertension Respiratory: Reports: None - Tobacco Use Tobacco Use Status *Q: Never Tobacco User - Caffeine Use Caffeine Use: Reports: None - Living Situation & Occupation Living situation: Reports: with Family ED ROS GENERAL - Review of Systems Review Of Systems: See Below Constitutional: Reports: Weakness, Fatigue (has been recovering from COVID). Denies: Fever, Chills, Malaise HEENT: Reports: Rhinitis. Denies: Ear Pain, Sinus Problem, Throat Pain Respiratory: Denies: Shortness of Breath, Cough Cardiovascular: Denies: Chest Pain, Edema, Lightheadedness Endocrine: Reports: Fatigue GI/Abdominal: Reports: Abdominal Pain. Denies: Constipation, Diarrhea, Decreased Appetite, Nausea, Vomiting : Reports: Dysuria, Frequency, Incontinence Musculoskeletal: Reports: No Symptoms Skin: Reports: No Symptoms Neurological: Reports: No Symptoms Psychiatric: Reports: No Symptoms Hematologic/Lymphatic: Reports: No Symptoms ED EXAM, GI/ABD - Physical Exam Exam: See Below Exam Limited By: No Limitations General Appearance: Alert, WD/WN, Mild Distress Ears: Normal External Exam, Normal TMs Nose: Normal Inspection, Normal Mucosa, No Blood Throat/Mouth: Normal Inspection, Normal Oropharynx Head: Normocephalic Neck: Normal Inspection, Supple, Non-Tender Respiratory/Chest: No Respiratory Distress, Lungs Clear, Normal Breath Sounds Cardiovascular: Regular Rate, Rhythm GI/Abdominal Exam: Normal Bowel Sounds, Soft, Tender (bilateral ) Extremities: Normal Inspection, Pedal Edema (1+) Neurological: Alert, Oriented Course - Vital Signs Last Recorded V/S: Last Vital Signs Temp 97.0 F 02/12/20 02:30 Pulse 77 02/12/20 02:30 Resp 20 02/12/20 02:30 BP 138/58 L 02/12/20 02:30 Pulse Ox 95 02/12/20 02:30 - Orders/Labs/Meds Orders: Active Orders 24 hr Category Date Time Status Abdomen 2V AP Flat Upright [CR] Stat Exams 02/12/20 02:22 Taken CULTURE URINE [RM] Stat Lab 02/12/20 02:24 Received Labs: Laboratory Tests 02/12/20 02/12/20 02/12/20 Range/Units 02:24 02:30 02:30 WBC 10.2 H (5.0-10.0) 10^3/uL RBC 5.09 (4.50-6.00) 10^6/uL Hgb 13.4 L (14.0-18.0) g/dL Hct 40.6 (40.0-54.0) % MCV 79.8 L (82.0-94.0) fL MCH 26.3 L (27.0-32.0) pg MCHC 33.0 (33.0-38.0) g/dL RDW Coeff of Hernandez 15.8 H (11.0-15.0) % Plt Count 172 (150-400) 10^3/uL Neut % (Auto) 77.6 (35-85) % Lymph % (Auto) 10.9 (10-55) % [place] % (Auto) 8.6 (0-16) % Eos % (Auto) 2.7 (0-5) % Baso % (Auto) 0.2 (0-3) % Neut # (Auto) 7.90 H (1.80-7.00) 10^3/uL Lymph # (Auto) 1.11 (1.00-4.80) 10^3/uL [place] # (Auto) 0.87 H (0.00-0.80) 10^3/uL Eos # (Auto) 0.27 (0.00-0.45) 10^3/uL Baso # (Auto) 0.02 10^3/uL Sodium 137 (136-145) mEq/L Potassium 4.3 (3.5-5.0) mEq/L Chloride 104 (98-106) mEq/L Carbon Dioxide 25 (21-32) mmol/L BUN 23 H (7-18) mg/dL Creatinine 1.3 (0.7-1.3) mg/dL Est Cr Clr Drug Dosing 45.05 mL/min Estimated GFR (MDRD) 53 L (>=60) mL/min Glucose 122 H D (75-99) mg/dL Calcium 8.3 L (8.4-10.1) mg/dL Total Bilirubin 0.6 (0.0-1.0) mg/dL AST 17 (15-37) U/L ALT 17 (12-78) U/L Alkaline Phosphatase 81 (46-116) U/L C-Reactive Protein 3.5 H (0.2-0.8) mg/dL Total Protein 6.3 L (6.4-8.2) g/dL Albumin 2.6 L (3.4-5.0) g/dL Urine Color Susan (YELLOW) Urine Appearance Cloudy (CLEAR) Urine pH 6.0 (4.5-8.0) Ur Specific [place] 1.020 (1.003-1.020) Urine Protein Negative (NEGATIVE) mg/dL Urine Glucose (UA) Negative (NEGATIVE) mg/dL Urine Ketones Negative (NEGATIVE) mg/dL Urine Occult Blood Trace-intact H (NEGATIVE) Urine Nitrite Positive H (NEGATIVE) Urine Bilirubin Negative (NEGATIVE) Urine Urobilinogen 0.2 (0.2-1.0) EU/dL Ur Leukocyte Esterase Small H (NEGATIVE) Urine RBC 0-5 (0-5) /HPF Urine WBC 75-100 H (0-5) /HPF Ur Epithelial Cells Few H (NOT SEEN) /HPF Urine Bacteria Few H (NOT SEEN) /HPF - Re-Assessments/Exams Free Text/Narrative Re-Assessment/Exam: 02/10 Patient labs are better, WBC is improved. Abdominal xray shows stool burden. Enema given with large results. pain improved to a 2 now. Departure - Departure Time of Disposition: 04:00 Disposition: Home, Self-Care 01 Condition: Fair Clinical Impression: Abdominal pain - Discharge Information *PRESCRIPTION DRUG MONITORING PROGRAM REVIEWED*: No *COPY OF PRESCRIPTION DRUG MONITORING REPORT IN PATIENT AYAH: No Instructions: Abdominal Pain, Adult, [id number] Referrals: PCP,Unknown [Ordering Only Provider] - Forms: ED Department Discharge Additional Instructions: 1. Push fluids 2. Continue Cipro and Flagyl 3. Tylenol for discomfort 4. Monitor for fevers, increased constipation or pain 5. Follow up if pain persists or worsens Sepsis Event Note (ED) - Evaluation Sepsis Screening Result: No Definite Risk - My Orders Last 24 Hours: My Active Orders 02/12/20 02:22 Abdomen 2V AP Flat Upright [CR] Stat 02/12/20 02:24 CULTURE URINE [RM] Stat - Assessment/Plan Last 24 Hours: My Active Orders 02/12/20 02:22 Abdomen 2V AP Flat Upright [CR] Stat 02/12/20 02:24 CULTURE URINE [RM] Stat
== END 2020-02-12 04:05 | disposition home or self-care (01) ==
LOC: CC.ED 02:10
DX: R10.30 Lower abdominal pain, unspecified (principal); E78.00 Pure hypercholesterolemia, unspecified; I10 Essential (primary) hypertension; N42.9 Disorder of prostate, unspecified; E11.9 Type 2 diabetes mellitus without complications; Z79.82 Long term (current) use of aspirin; Z79.4 Long term (current) use of insulin; Z79.899 Other long term (current) drug therapy
CPT/HCPCS: 36415; 74019; 80053; 81001; 85025; 86140; 87086; 99284

== ENCOUNTER 2020-02-21 14:09 | Emergency (ER) | payer MEDICARE, BC ==
[2020-02-21] MEDS ORDERED: Cephalexin 500 MG Cap ONE (14:50)
--- NOTE | 2020-02-21 14:57 | EDM.PDOC ---
ED HPI GENERAL MEDICAL PROBLEM - General Chief Complaint: General Stated Complaint: "I think I have a bladder infection" Time Seen by Provider: 02/21/20 14:15 Source of Information: Reports: Patient History Limitations: Reports: No Limitations - History of Present Illness INITIAL COMMENTS - FREE TEXT/NARRATIVE: This patient is an 84 year old male that presents to the ER. Patient reports for abotu 2 days having to urinate a lot and having painful, burning urination. Patient reports he gets frequent UTIs. Patient reports he was seen in the clinic 2 days ago for same complaint, but no improvement. Appears patient was started on Cipro 250mg qd. I do not see where a UA was obtained. Patient reports no labs were done. Patient denies n, v, d, f, abd pain. Onset Date: 02/19/20 Duration: Day(s): (2) Quality: Reports: Burning Severity: Mild Improves with: Reports: None Worsens with: Reports: None Associated Symptoms: Reports: No Other Symptoms. Denies: Confusion, Chest Pain, Cough, cough w sputum, Diaphoresis, Fever/Chills, Headaches, Loss of Appetite, Malaise, Nausea/Vomiting, Rash, Seizure, Shortness of Breath, Syncope, Weakness Bladder Pain Score (Numeric/FACES): 6 - Related Data Allergies Allergy/AdvReac Type Severity Reaction Status Date / Time No Known Allergies Allergy Verified 02/21/20 14:29 Home Meds: Home Meds Benazepril [Lotensin] 10 mg PO BID 01/25/17 [History] Insulin Detemir [Levemir Flextouch] 30 unit SQ BEDTIME 01/25/17 [History] Simvastatin [Zocor] 40 mg PO DAILY 01/25/17 [History] Aspirin [Ecotrin EC] 81 mg PO DAILY 10/31/19 [History] Insulin Isophane NPH, Human [HumuLIN N] 20 units SQ WITHLUNCH 10/31/19 [History] Metoprolol Succinate [Toprol XL 100mg] 100 mg PO DAILY 10/31/19 [History] Tamsulosin HCl 0.4 mg PO DAILY 12/11/19 [History] amLODIPine [Norvasc] 10 mg PO DAILY 02/01/20 [History] cloNIDine HCL [Clonidine HCl] 0.1 mg PO BID 02/01/20 [History] Furosemide [Lasix] 20 mg PO DAILY 02/12/20 [History] Insulin Isophane NPH, Human [HumuLIN N] 25 units SQ BID 02/12/20 [History] cephALEXin [Cephalexin] 500 mg PO BID 5 Days #10 capsule 02/21/20 [Rx] Past Medical History HEENT History: Reports: Hard of Hearing Cardiovascular History: Reports: High Cholesterol, Hypertension Genitourinary History: Reports: Prostate Disorder, UTI, Recurrent Endocrine/Metabolic History: Reports: Diabetes, Type II - Infectious Disease History Infectious Disease History: Reports: MRSA, Novel Coronavirus Other Infectious Disease History: left wrist incision 01/02/18 - Past Surgical History HEENT Surgical History: Reports: None Social & Family History - Family History Family Medical History: No Pertinent Family History Cardiac: Reports: Hypertension Respiratory: Reports: None - Tobacco Use Tobacco Use Status *Q: Never Tobacco User - Caffeine Use Caffeine Use: Reports: Soda - Recreational Drug Use Recreational Drug Use: No - Living Situation & Occupation Living situation: Reports: with Family ED ROS GENERAL - Review of Systems Review Of Systems: See Below Constitutional: Reports: No Symptoms HEENT: Reports: No Symptoms Respiratory: Reports: No Symptoms Cardiovascular: Reports: No Symptoms Endocrine: Reports: No Symptoms GI/Abdominal: Denies: Abdominal Pain, Nausea, Vomiting : Reports: Dysuria, Frequency Musculoskeletal: Reports: No Symptoms Skin: Reports: No Symptoms Neurological: Reports: No Symptoms Psychiatric: Reports: No Symptoms Hematologic/Lymphatic: Reports: No Symptoms Immunologic: Reports: No Symptoms ED EXAM, GENERAL - Physical Exam Exam: See Below Exam Limited By: No Limitations General Appearance: Alert, WD/WN, No Apparent Distress Respiratory/Chest: No Respiratory Distress, Lungs Clear, Normal Breath Sounds, No Accessory Muscle Use Cardiovascular: Normal Peripheral Pulses, Regular Rate, Rhythm, No Edema, No Gallop, No JVD, No Murmur, No Rub Peripheral Pulses: 2+: Radial (L), Radial (R), Posterior Tibial (L), Posterior Tibial (R) GI/Abdominal: Soft, Non-Tender (Male) Exam: Deferred Rectal (Males) Exam: Deferred Back Exam: Normal Inspection, Full Range of Motion. No: CVA Tenderness (L), CVA Tenderness (R) Extremities: Normal Inspection Neurological: Alert, Oriented Psychiatric: Normal Affect, Normal Mood Skin Exam: Warm, Dry, Intact, Normal Color, No Rash Course - Vital Signs Last Recorded V/S: Last Vital Signs Temp 98.6 F 02/21/20 14:21 Pulse 94 02/21/20 14:21 Resp 20 02/21/20 14:21 BP 166/83 H 02/21/20 14:21 Pulse Ox 95 02/21/20 14:21 - Orders/Labs/Meds Orders: Active Orders 24 hr Category Date Time Status CULTURE URINE [RM] Routine Lab 02/21/20 14:30 Received cephALEXin [Take Home: Cephalexin 500 MG, 4 Cap Pack] Med 02/21/20 15:00 Once 1 packet PO ONETIME ONE Labs: Laboratory Tests 02/21/20 Range/Units 14:20 Urine Color Yellow (YELLOW) Urine Appearance Clear (CLEAR) Urine pH 6.5 (4.5-8.0) Ur Specific [place] 1.020 (1.003-1.020) Urine Protein 30 H (NEGATIVE) mg/dL Urine Glucose (UA) Negative (NEGATIVE) mg/dL Urine Ketones Negative (NEGATIVE) mg/dL Urine Occult Blood Moderate H (NEGATIVE) Urine Nitrite Negative (NEGATIVE) Urine Bilirubin Negative (NEGATIVE) Urine Urobilinogen 0.2 (0.2-1.0) EU/dL Ur Leukocyte Esterase Large H (NEGATIVE) Urine RBC 20-30 H (0-5) /HPF Urine WBC 75-100 H (0-5) /HPF Urine Bacteria Moderate H (NOT SEEN) /HPF Urinalysis Comment Departure - Departure Time of Disposition: 14:58 Disposition: Home, Self-Care 01 Condition: Good Clinical Impression: UTI, Urinary tract infectious disease - Discharge Information *PRESCRIPTION DRUG MONITORING PROGRAM REVIEWED*: Not Applicable *COPY OF PRESCRIPTION DRUG MONITORING REPORT IN PATIENT AYAH: Not Applicable Prescriptions: cephALEXin [Cephalexin] 500 mg PO BID 5 Days #10 capsule Instructions: Antibiotic Medicine, Adult, [id number], Urinary Tract Infection, Adult, [id number], Infection Prevention in the Home Forms: ED Department Discharge Additional Instructions: Followup with primary care provider Return to the ER for worsening of condition or any emergent concerns Cephalexin 500mg 1 pill twice a day for 7 days #10 no refill: #4 take home Sepsis Event Note (ED) - Evaluation Sepsis Screening Result: No Definite Risk - Focused Exam Vital Signs: Vital Signs Temp Pulse Resp BP Pulse Ox 02/21/20 14:21 98.6 F 94 20 166/83 H 95 - My Orders Last 24 Hours: My Active Orders 02/21/20 14:30 CULTURE URINE [RM] Routine 02/21/20 15:00 cephALEXin [Take Home: Cephalexin 500 MG, 4 Cap Pack] 1 packet PO ONETIME ONE - Assessment/Plan Last 24 Hours: My Active Orders 02/21/20 14:30 CULTURE URINE [RM] Routine 02/21/20 15:00 cephALEXin [Take Home: Cephalexin 500 MG, 4 Cap Pack] 1 packet PO ONETIME ONE Plan: PLEASE SEE RN NOTE FOR PFSH
[2020-02-21] MEDS ORDERED: Take Home: Cephalexin 500 MG Cap, 4 Cap Pack PO ONE (15:00)
== END 2020-02-21 15:10 | disposition home or self-care (01) ==
LOC: CC.ED 14:09
DX: N39.0 Urinary tract infection, site not specified (principal); I10 Essential (primary) hypertension; E78.00 Pure hypercholesterolemia, unspecified; E11.9 Type 2 diabetes mellitus without complications; Z79.4 Long term (current) use of insulin; Z79.82 Long term (current) use of aspirin; Z79.899 Other long term (current) drug therapy
CPT/HCPCS: 81001; 87086; 87088; 87186; 99283; 99284; A9270-GY

== ENCOUNTER 2020-05-24 08:23 | Inpatient (IN) | payer MEDICARE, BC ==
--- NOTE | 2020-05-24 08:53 | EDM.PDOC ---
ED HPI GENERAL MEDICAL PROBLEM - General Chief Complaint: Respiratory Problem Stated Complaint: SOB Time Seen by Provider: 05/24/20 08:41 Source of Information: Reports: Patient History Limitations: Reports: No Limitations - History of Present Illness INITIAL COMMENTS - FREE TEXT/NARRATIVE: This patient is an 84 year old male that presents to the ER. Patient reports that started about 3 days ago having some mild shortness of breath. He reports that for a "long time" he has had chronic congestion, runny nose and uses nasal spray sometimes. Patient reports then today this morning while sitting down eating breakfast his shortness of breath became much worse. Patient reports it was worse with rest and activity. Patient reports he had COVID back in January. He reports getting his first COVID vaccine about 1 week ago. Patient denies any pain. Denies gotti, dizziness, n, v, d, f, chest pain, abd pain, back pain, cough. Onset Date: 05/21/20 Duration: Getting Worse Severity: Moderate Improves with: Reports: None Worsens with: Reports: None Associated Symptoms: Reports: Shortness of Breath. Denies: Confusion, Chest Pain, Cough, cough w sputum, Diaphoresis, Fever/Chills, Headaches, Loss of Appetite, Malaise, Nausea/Vomiting, Rash, Seizure, Syncope, Weakness - Related Data Allergies Allergy/AdvReac Type Severity Reaction Status Date / Time No Known Allergies Allergy Verified 05/24/20 08:40 Home Meds: Home Meds Benazepril [Lotensin] 10 mg PO BID 01/25/17 [History] Insulin Detemir [Levemir Flextouch] 20 unit SQ BEDTIME 01/25/17 [History] Simvastatin [Zocor] 40 mg PO DAILY 01/25/17 [History] Aspirin [Ecotrin EC] 81 mg PO DAILY 10/31/19 [History] Insulin Isophane NPH, Human [HumuLIN N] 10 units SQ WITHLUNCH 10/31/19 [History] Metoprolol Succinate [Toprol XL 100mg] 100 mg PO DAILY 10/31/19 [History] Tamsulosin HCl 0.4 mg PO DAILY 12/11/19 [History] amLODIPine [Norvasc] 10 mg PO DAILY 02/01/20 [History] cloNIDine HCL [Clonidine HCl] 0.1 mg PO BID 02/01/20 [History] Furosemide [Lasix] 20 mg PO DAILY PRN 02/12/20 [History] Insulin Isophane NPH, Human [HumuLIN N] 20 units SQ BID 02/12/20 [History] Past Medical History HEENT History: Reports: Hard of Hearing Cardiovascular History: Reports: High Cholesterol, Hypertension Genitourinary History: Reports: Prostate Disorder, UTI, Recurrent Endocrine/Metabolic History: Reports: Diabetes, Type II - Infectious Disease History Infectious Disease History: Reports: MRSA, Novel Coronavirus Other Infectious Disease History: left wrist incision 01/02/18 - Past Surgical History HEENT Surgical History: Reports: None Social & Family History - Family History Family Medical History: No Pertinent Family History Cardiac: Reports: Hypertension Respiratory: Reports: None - Caffeine Use Caffeine Use: Reports: Soda - Living Situation & Occupation Living situation: Reports: with Family ED ROS GENERAL - Review of Systems Review Of Systems: See Below Constitutional: Reports: No Symptoms. Denies: Fever, Chills, Malaise, Weakness, Fatigue, Diaphoresis, Decreased Appetite HEENT: Reports: Rhinitis, Sinus Problem Respiratory: Reports: Shortness of Breath. Denies: Wheezing, Pleuritic Chest Pain, Cough, Sputum, Hemoptysis Cardiovascular: Reports: No Symptoms. Denies: Chest Pain, Dyspnea on Exertion, Edema, Lightheadedness, Palpitations, Syncope Endocrine: Reports: No Symptoms GI/Abdominal: Reports: No Symptoms. Denies: Abdominal Pain, Diarrhea, Nausea, Vomiting : Reports: No Symptoms Musculoskeletal: Reports: No Symptoms Skin: Reports: No Symptoms Neurological: Reports: No Symptoms Psychiatric: Reports: No Symptoms Hematologic/Lymphatic: Reports: No Symptoms Immunologic: Reports: No Symptoms ED EXAM, GENERAL - Physical Exam Exam: See Below Exam Limited By: No Limitations General Appearance: Alert, WD/WN, No Apparent Distress, Other (on oxygen in ER 2L NC. ) Eye Exam: Bilateral Eye: Normal Inspection, PERRL Ears: Normal External Exam, Normal Canal, Hearing Grossly Normal, Normal TMs Ear Exam: Bilateral Ear: Auricle Normal, Canal Normal, TM normal Nose: Normal Inspection, Normal Mucosa, No Blood Throat/Mouth: Normal Inspection, Normal Lips, Normal Teeth, Normal Gums, Normal Oropharynx, Normal Voice, No Airway Compromise Head: Atraumatic, Normocephalic Neck: Normal Inspection, Supple, Non-Tender, Full Range of Motion Respiratory/Chest: No Respiratory Distress, Lungs Clear, Normal Breath Sounds, No Accessory Muscle Use, Chest Non-Tender Cardiovascular: Normal Peripheral Pulses, Regular Rate, Rhythm, No Edema, No Gallop, No JVD, No Murmur, No Rub Peripheral Pulses: 2+: Radial (R), Femoral (L), Posterior Tibial (L), Posterior Tibial (R) GI/Abdominal: Normal Bowel Sounds, Soft, Non-Tender, No Organomegaly, No Distention, No Abnormal Bruit, No Mass, Pelvis Stable (Male) Exam: Deferred Rectal (Males) Exam: Deferred Back Exam: Normal Inspection, Full Range of Motion Extremities: Normal Inspection, Normal Range of Motion, Non-Tender, No Pedal Edema, Normal Capillary Refill Neurological: Alert, Oriented, Normal Cognition, No Motor/Sensory Deficits Psychiatric: Normal Affect, Normal Mood Skin Exam: Warm, Dry, Intact, Normal Color, No Rash Lymphatic: No Adenopathy Course - Vital Signs Last Recorded V/S: Last Vital Signs Temp 97.6 F 05/24/20 08:58 Pulse 77 05/24/20 08:58 Resp 23 H 05/24/20 08:58 BP 155/87 H 05/24/20 08:58 Pulse Ox 96 05/24/20 08:58 - Orders/Labs/Meds Orders: Active Orders 24 hr Category Date Time Status Patient Status Manage Transfer [TRANSFER] Routine ADT 05/24/20 11:53 Active CTA Chest W WO Contrast [Ang Chest] [CT] Stat Exams 05/24/20 10:18 Taken Chest 2V [CR] Stat Exams 05/24/20 08:50 Taken CULTURE BLOOD [BC] Stat Lab 05/24/20 09:30 Received CULTURE BLOOD [BC] Stat Lab 05/24/20 09:35 Received Sodium Chloride 0.9% [Normal Saline] 1,000 ml Med 05/24/20 10:39 Active IV .BOLUS Blood Culture x2 Reflex Set [OM.PC] Stat Oth 05/24/20 08:50 Ordered Resuscitation Status Routine Resus Stat 05/24/20 11:54 Ordered Medication Orders Sodium Chloride (Normal Saline) 1,000 mls @ 500 mls/hr IV .BOLUS ONE Stop: 05/24/20 12:38 Last Admin: 05/24/20 11:26 Dose: 500 mls/hr Documented by: [id number] Labs: Laboratory Tests 05/24/20 05/24/20 05/24/20 Range/Units 08:57 08:57 08:57 WBC 9.7 (5.0-10.0) 10^3/uL RBC 5.13 (4.50-6.00) 10^6/uL Hgb 12.6 L (14.0-18.0) g/dL Hct 38.6 L (40.0-54.0) % MCV 75.2 L (82.0-94.0) fL MCH 24.6 L (27.0-32.0) pg MCHC 32.6 L (33.0-38.0) g/dL RDW Coeff of Hernandez 18.0 H (11.0-15.0) % Plt Count 195 (150-400) 10^3/uL Neut % (Auto) 73.8 (35-85) % Lymph % (Auto) 12.4 (10-55) % [place] % (Auto) 11.5 (0-16) % Eos % (Auto) 2.0 (0-5) % Baso % (Auto) 0.3 (0-3) % Neut # (Auto) 7.13 H (1.80-7.00) 10^3/uL Lymph # (Auto) 1.20 (1.00-4.80) 10^3/uL [place] # (Auto) 1.11 H (0.00-0.80) 10^3/uL Eos # (Auto) 0.19 (0.00-0.45) 10^3/uL Baso # (Auto) 0.03 10^3/uL D-Dimer, Quantitative 0.56 H (0.00-0.50) Sodium (136-145) mEq/L Potassium (3.5-5.0) mEq/L Chloride (98-106) mEq/L Carbon Dioxide (21-32) mmol/L BUN (7-18) mg/dL Creatinine (0.7-1.3) mg/dL Est Cr Clr Drug Dosing mL/min Estimated GFR (MDRD) (>=60) mL/min Glucose (75-99) mg/dL Lactic Acid (0.4-2.0) mmol/L Calcium (8.4-10.1) mg/dL Total Bilirubin (0.0-1.0) mg/dL AST (15-37) U/L ALT (12-78) U/L Alkaline Phosphatase (46-116) U/L Lactate Dehydrogenase (100-190) U/L Creatine Kinase (35-232) U/L Troponin I (0.00-0.06) ng/mL C-Reactive Protein (0.2-0.8) mg/dL NT-Pro-B Natriuret Pep (0-1000) pg/mL Total Protein (6.4-8.2) g/dL Albumin (3.4-5.0) g/dL SARS CoV-2 RNA Rapid LYDIA Negative (NEGATIVE) 05/24/20 05/24/20 05/24/20 Range/Units 08:57 08:57 10:40 WBC (5.0-10.0) 10^3/uL RBC (4.50-6.00) 10^6/uL Hgb (14.0-18.0) g/dL Hct (40.0-54.0) % MCV (82.0-94.0) fL MCH (27.0-32.0) pg MCHC (33.0-38.0) g/dL RDW Coeff of Hernandez (11.0-15.0) % Plt Count (150-400) 10^3/uL Neut % (Auto) (35-85) % Lymph % (Auto) (10-55) % [place] % (Auto) (0-16) % Eos % (Auto) (0-5) % Baso % (Auto) (0-3) % Neut # (Auto) (1.80-7.00) 10^3/uL Lymph # (Auto) (1.00-4.80) 10^3/uL [place] # (Auto) (0.00-0.80) 10^3/uL Eos # (Auto) (0.00-0.45) 10^3/uL Baso # (Auto) 10^3/uL D-Dimer, Quantitative (0.00-0.50) Sodium 140 (136-145) mEq/L Potassium 4.6 (3.5-5.0) mEq/L Chloride 105 (98-106) mEq/L Carbon Dioxide 24 (21-32) mmol/L BUN 14 (7-18) mg/dL Creatinine 1.1 (0.7-1.3) mg/dL Est Cr Clr Drug Dosing 53.24 mL/min Estimated GFR (MDRD) > 60 (>=60) mL/min Glucose 156 H (75-99) mg/dL Lactic Acid 1.1 (0.4-2.0) mmol/L Calcium 8.6 (8.4-10.1) mg/dL Total Bilirubin 0.8 (0.0-1.0) mg/dL AST 30 (15-37) U/L ALT 50 (12-78) U/L Alkaline Phosphatase 92 (46-116) U/L Lactate Dehydrogenase 151 (100-190) U/L Creatine Kinase 66 (35-232) U/L Troponin I 0.028 (0.00-0.06) ng/mL C-Reactive Protein 1.1 H (0.2-0.8) mg/dL NT-Pro-B Natriuret Pep 2954 H (0-1000) pg/mL Total Protein 7.0 (6.4-8.2) g/dL Albumin 3.0 L (3.4-5.0) g/dL SARS CoV-2 RNA Rapid LYDIA (NEGATIVE) Meds: Medications Generic Name Dose Route Start Last Admin Trade Name Freq PRN Reason Stop Dose Admin Sodium Chloride 1,000 mls @ 500 mls/hr 05/24/20 10:39 05/24/20 11:26 Normal Saline IV 05/24/20 12:38 500 mls/hr .BOLUS ONE Administration Discontinued Medications Generic Name Dose Route Start Last Admin Trade Name Freq PRN Reason Stop Dose Admin Iopamidol 100 ml 05/24/20 10:22 05/24/20 10:34 Isovue-370 (76%) IVPUSH 05/24/20 10:23 100 ml ONETIME ONE Administration - Radiology Interpretation Free Text/Narrative:: CXR: Possible bilateral bronchial infiltrates. CTA Chest: No PEs. NICOLA infiltrate. Bilateral lower lobe actelectasis. Bilateral bronchial pneumonia. CT Results Date: 05/24/20 CT Results Time: 11:35 - Re-Assessments/Exams Free Text/Narrative Re-Assessment/Exam: 05/24/20 12:05 Patient 96% on 2L NC. No respiratory distress. Will admit for pneumonia. Departure - Departure Time of Disposition: 12:04 Disposition: DC/Tfer to Acute Hospital 02 Condition: Fair Clinical Impression: Bronchial pneumonia Pneumonia Qualifiers: Pneumonia type: due to unspecified organism Laterality: left Lung location: upper lobe of lung Qualified Code(s): J18.9 - Pneumonia, unspecified organism - Discharge Information *PRESCRIPTION DRUG MONITORING PROGRAM REVIEWED*: Not Applicable *COPY OF PRESCRIPTION DRUG MONITORING REPORT IN PATIENT AYAH: Not Applicable Forms: ED Department Discharge Sepsis Event Note (ED) - Focused Exam Vital Signs: Vital Signs Temp Pulse Resp BP Pulse Ox Pulse Ox 05/24/20 08:58 97.6 F 77 23 H 155/87 H 96 05/24/20 08:57 96 - My Orders Last 24 Hours: My Active Orders 05/24/20 08:50 Chest 2V [CR] Stat Blood Culture x2 Reflex Set [OM.PC] Stat 05/24/20 09:30 CULTURE BLOOD [BC] Stat 05/24/20 09:35 CULTURE BLOOD [BC] Stat 05/24/20 10:18 CTA Chest W WO Contrast [Ang Chest] [CT] Stat 05/24/20 10:39 Sodium Chloride 0.9% [Normal Saline] 1,000 ml IV .BOLUS 05/24/20 11:53 Patient Status Manage Transfer [TRANSFER] Routine 05/24/20 11:54 Resuscitation Status Routine - Assessment/Plan Last 24 Hours: My Active Orders 05/24/20 08:50 Chest 2V [CR] Stat Blood Culture x2 Reflex Set [OM.PC] Stat 05/24/20 09:30 CULTURE BLOOD [BC] Stat 05/24/20 09:35 CULTURE BLOOD [BC] Stat 05/24/20 10:18 CTA Chest W WO Contrast [Ang Chest] [CT] Stat 05/24/20 10:39 Sodium Chloride 0.9% [Normal Saline] 1,000 ml IV .BOLUS 05/24/20 11:53 Patient Status Manage Transfer [TRANSFER] Routine 05/24/20 11:54 Resuscitation Status Routine Plan: PLEASE SEE RN NOTE FOR PFSH
[2020-05-24 09:22] LABS: CHLORIDE,CL 105 mEq/L (98-106); SODIUM,NA 140 mEq/L (136-145)
[2020-05-24] MEDS ORDERED: Iopamidol 755 Mg/ML 100 ML Bottle IVPUSH ONE (10:22)
[2020-05-24] MEDS ORDERED: Sodium Chloride 0.9% 1,000 ML IV ONE (10:39)
[2020-05-24] MEDS ORDERED: Ondansetron 4 MG/2 ML SDV IV PRN (12:09)
[2020-05-24] MEDS ORDERED: Acetaminophen 325 MG Tab PO PRN (12:09)
[2020-05-24] MEDS ORDERED: Ibuprofen 200 MG Tab PO PRN (12:09)
[2020-05-24] MEDS ORDERED: Furosemide 40 MG Tab PO PRN (12:09)
[2020-05-24] MEDS ORDERED: Docusate Sodium 100 MG Cap PO PRN (12:09)
[2020-05-24] MEDS: Levofloxacin/Dextrose 5%-Water 750 MG in Premix Bag 1 BAG IV SCH (13:42)
[2020-05-24] MEDS: Furosemide 40 MG Tab PO SCH (17:24)
[2020-05-24] MEDS: Lisinopril 10 MG Tab PO SCH (19:46)
[2020-05-24] MEDS: cloNIDine 0.1 MG Tab PO SCH (19:47)
[2020-05-24] MEDS: Simvastatin 40 MG Tab PO SCH (19:47)
[2020-05-24] MEDS: Enoxaparin 40 MG/0.4 ML Syringe SUBCUT SCH (19:48)
[2020-05-24] MEDS ORDERED: Insulin Glarg,Human.Rec.Analog 100 Unit/ML SUBCUT SCH (20:00)
[2020-05-24] MEDS: Albuterol/Ipratropium 3.0-0.5 MG/3 ML Neb Soln NEB PRN (20:37)
[2020-05-24] MEDS: [UNRECOGNIZED DRUG - OTHER] SUBCUT SCH (20:38)
[2020-05-24] MEDS: Temazepam 15 MG Cap PO PRN (23:09)
[2020-05-25 07:37] LABS: CHLORIDE,CL 105 mEq/L (98-106); SODIUM,NA 138 mEq/L (136-145)
[2020-05-25] MEDS: Metoprolol Succinate 100 MG Tab.ER PO SCH (07:39)
[2020-05-25] MEDS: Tamsulosin 0.4 MG Cap.ER PO SCH (07:40)
[2020-05-25] MEDS: cloNIDine 0.1 MG Tab PO SCH ×2 (07:40→19:41)
[2020-05-25] MEDS: Lisinopril 10 MG Tab PO SCH ×2 (07:40→19:41)
[2020-05-25] MEDS: amLODIPine 10 MG Tab PO SCH (07:41)
[2020-05-25] MEDS: Furosemide 40 MG Tab PO SCH (07:41)
[2020-05-25] MEDS: Aspirin 81 MG Tab.EC PO SCH (07:41)
[2020-05-25] MEDS ORDERED: Codeine/Promethazine 10-6.25 MG/5 ML Syrup 5 ML UD Cup PO PRN (07:55)
[2020-05-25] MEDS: [UNRECOGNIZED DRUG - OTHER] SUBCUT SCH ×2 (08:01→19:54)
--- NOTE | 2020-05-25 08:41 | PCM.PN ---
- General Info Date of Service: 05/25/20 Admission Dx/Problem (Free Text): NICOLA Pneumonia Subjective Update: Patient states is feeling better today. Did not sleep well, sleep medicine did not work. Was coughing much of night. Did collect sputum, awaiting results. Admits to good appetite. Denies abdominal discomfort, has no burning. Recently completed a course of antibiotics for UTI as well. Does continue to feel weak. Had COVID, then issues with UTI and a reaction to the vaccine and now pneumonia. "Haven't gotten my energy back". Has been afebrile. Functional Status: Reports: Pain Controlled, Tolerating Diet, Ambulating - Review of Systems General: Reports: Weakness, Fatigue, Malaise. Denies: Fever HEENT: Denies: Ear Pain, Sinus Congestion, Sore Throat Pulmonary: Reports: Shortness of Breath, Cough, Sputum Cardiovascular: Denies: Chest Pain, Lightheadedness Gastrointestinal: Denies: Abdominal Pain, Decreased Appetite, Nausea, Vomiting Genitourinary: Reports: Other (has catheter) Musculoskeletal: Reports: No Symptoms Skin: Reports: No Symptoms Neurological: Reports: Weakness - Patient Data Vitals - Most Recent: Last Vital Signs Temp 98.4 F 05/25/20 07:52 Pulse 88 05/25/20 07:52 Resp 20 05/25/20 07:52 BP 164/76 H 05/25/20 07:52 Pulse Ox 94 L 05/25/20 07:52 Weight - Most Recent: 214 lb 11.2 oz I&O - Last 24 Hours: Intake & Output 05/24/20 05/25/20 05/25/20 22:59 06:59 14:59 Intake Total 1080 Output Total 1300 3100 Balance -1300 -2020 Lab Results Last 24 Hours: Laboratory Results - last 24 hr 05/24/20 05/24/20 05/24/20 Range/Units 08:57 08:57 08:57 WBC 9.7 (5.0-10.0) 10^3/uL RBC 5.13 (4.50-6.00) 10^6/uL Hgb 12.6 L (14.0-18.0) g/dL Hct 38.6 L (40.0-54.0) % MCV 75.2 L (82.0-94.0) fL MCH 24.6 L (27.0-32.0) pg MCHC 32.6 L (33.0-38.0) g/dL RDW Coeff of Hernandez 18.0 H (11.0-15.0) % Plt Count 195 (150-400) 10^3/uL Neut % (Auto) 73.8 (35-85) % Lymph % (Auto) 12.4 (10-55) % [place] % (Auto) 11.5 (0-16) % Eos % (Auto) 2.0 (0-5) % Baso % (Auto) 0.3 (0-3) % Neut # (Auto) 7.13 H (1.80-7.00) 10^3/uL Lymph # (Auto) 1.20 (1.00-4.80) 10^3/uL [place] # (Auto) 1.11 H (0.00-0.80) 10^3/uL Eos # (Auto) 0.19 (0.00-0.45) 10^3/uL Baso # (Auto) 0.03 10^3/uL D-Dimer, Quantitative 0.56 H (0.00-0.50) Sodium (136-145) mEq/L Potassium (3.5-5.0) mEq/L Chloride (98-106) mEq/L Carbon Dioxide (21-32) mmol/L BUN (7-18) mg/dL Creatinine (0.7-1.3) mg/dL Est Cr Clr Drug Dosing mL/min Estimated GFR (MDRD) (>=60) mL/min Glucose (75-99) mg/dL Lactic Acid (0.4-2.0) mmol/L Calcium (8.4-10.1) mg/dL Total Bilirubin (0.0-1.0) mg/dL AST (15-37) U/L ALT (12-78) U/L Alkaline Phosphatase (46-116) U/L Lactate Dehydrogenase (100-190) U/L Creatine Kinase (35-232) U/L Troponin I (0.00-0.06) ng/mL C-Reactive Protein (0.2-0.8) mg/dL NT-Pro-B Natriuret Pep (0-1000) pg/mL Total Protein (6.4-8.2) g/dL Albumin (3.4-5.0) g/dL SARS CoV-2 RNA Rapid LYDIA Negative (NEGATIVE) 05/24/20 05/24/20 05/24/20 Range/Units 08:57 08:57 10:40 WBC (5.0-10.0) 10^3/uL RBC (4.50-6.00) 10^6/uL Hgb (14.0-18.0) g/dL Hct (40.0-54.0) % MCV (82.0-94.0) fL MCH (27.0-32.0) pg MCHC (33.0-38.0) g/dL RDW Coeff of Hernandez (11.0-15.0) % Plt Count (150-400) 10^3/uL Neut % (Auto) (35-85) % Lymph % (Auto) (10-55) % [place] % (Auto) (0-16) % Eos % (Auto) (0-5) % Baso % (Auto) (0-3) % Neut # (Auto) (1.80-7.00) 10^3/uL Lymph # (Auto) (1.00-4.80) 10^3/uL [place] # (Auto) (0.00-0.80) 10^3/uL Eos # (Auto) (0.00-0.45) 10^3/uL Baso # (Auto) 10^3/uL D-Dimer, Quantitative (0.00-0.50) Sodium 140 (136-145) mEq/L Potassium 4.6 (3.5-5.0) mEq/L Chloride 105 (98-106) mEq/L Carbon Dioxide 24 (21-32) mmol/L BUN 14 (7-18) mg/dL Creatinine 1.1 (0.7-1.3) mg/dL Est Cr Clr Drug Dosing 53.24 mL/min Estimated GFR (MDRD) > 60 (>=60) mL/min Glucose 156 H (75-99) mg/dL Lactic Acid 1.1 (0.4-2.0) mmol/L Calcium 8.6 (8.4-10.1) mg/dL Total Bilirubin 0.8 (0.0-1.0) mg/dL AST 30 (15-37) U/L ALT 50 (12-78) U/L Alkaline Phosphatase 92 (46-116) U/L Lactate Dehydrogenase 151 (100-190) U/L Creatine Kinase 66 (35-232) U/L Troponin I 0.028 (0.00-0.06) ng/mL C-Reactive Protein 1.1 H (0.2-0.8) mg/dL NT-Pro-B Natriuret Pep 2954 H (0-1000) pg/mL Total Protein 7.0 (6.4-8.2) g/dL Albumin 3.0 L (3.4-5.0) g/dL SARS CoV-2 RNA Rapid LYDIA (NEGATIVE) 05/25/20 05/25/20 Range/Units 05:00 05:00 WBC 9.2 (5.0-10.0) 10^3/uL RBC 5.30 (4.50-6.00) 10^6/uL Hgb 12.8 L (14.0-18.0) g/dL Hct 39.8 L (40.0-54.0) % MCV 75.1 L (82.0-94.0) fL MCH 24.2 L (27.0-32.0) pg MCHC 32.2 L (33.0-38.0) g/dL RDW Coeff of Hernandez 17.6 H (11.0-15.0) % Plt Count 189 (150-400) 10^3/uL Neut % (Auto) 68.5 (35-85) % Lymph % (Auto) 15.5 (10-55) % [place] % (Auto) 13.2 (0-16) % Eos % (Auto) 2.5 (0-5) % Baso % (Auto) 0.3 (0-3) % Neut # (Auto) 6.28 (1.80-7.00) 10^3/uL Lymph # (Auto) 1.42 (1.00-4.80) 10^3/uL [place] # (Auto) 1.21 H (0.00-0.80) 10^3/uL Eos # (Auto) 0.23 (0.00-0.45) 10^3/uL Baso # (Auto) 0.03 10^3/uL D-Dimer, Quantitative (0.00-0.50) Sodium 138 (136-145) mEq/L Potassium 4.0 (3.5-5.0) mEq/L Chloride 105 (98-106) mEq/L Carbon Dioxide 24 (21-32) mmol/L BUN 15 (7-18) mg/dL Creatinine 1.1 (0.7-1.3) mg/dL Est Cr Clr Drug Dosing 53.24 mL/min Estimated GFR (MDRD) > 60 (>=60) mL/min Glucose 180 H (75-99) mg/dL Lactic Acid (0.4-2.0) mmol/L Calcium 8.3 L (8.4-10.1) mg/dL Total Bilirubin (0.0-1.0) mg/dL AST (15-37) U/L ALT (12-78) U/L Alkaline Phosphatase (46-116) U/L Lactate Dehydrogenase (100-190) U/L Creatine Kinase (35-232) U/L Troponin I (0.00-0.06) ng/mL C-Reactive Protein 1.1 H (0.2-0.8) mg/dL NT-Pro-B Natriuret Pep (0-1000) pg/mL Total Protein (6.4-8.2) g/dL Albumin (3.4-5.0) g/dL SARS CoV-2 RNA Rapid LYDIA (NEGATIVE) Med Orders - Current: Current Medications Acetaminophen (Tylenol) 650 mg PO Q4H PRN PRN Reason: Pain (Mild 1-3)/fever Albuterol/Ipratropium (Duoneb 3.0-0.5 Mg/3 Ml) 3 ml NEB Q4H PRN PRN Reason: Shortness Of Breath/wheezing Last Admin: 05/24/20 20:37 Dose: 3 ml Documented by: Amlodipine Besylate (Norvasc) 10 mg PO DAILY [facility] Last Admin: 05/25/20 07:41 Dose: 10 mg Documented by: Aspirin (Halfprin) 81 mg PO DAILY [facility] Last Admin: 05/25/20 07:41 Dose: 81 mg Documented by: Clonidine HCl (Catapres) 0.1 mg PO BID [facility] Last Admin: 05/25/20 07:40 Dose: 0.1 mg Documented by: Docusate Sodium (Colace) 100 mg PO BID PRN PRN Reason: Constipation Enoxaparin Sodium (Lovenox) 40 mg SUBCUT Q24H [facility] Last Admin: 05/24/20 19:48 Dose: 40 mg Documented by: Furosemide (Lasix) 40 mg PO DAILY [facility] Last Admin: 05/25/20 07:41 Dose: 40 mg Documented by: Levofloxacin/Dextrose 750 mg/ (Premix) 150 mls @ 100 mls/hr IV Q24H [facility] Last Admin: 05/24/20 13:42 Dose: 100 mls/hr Documented by: Ibuprofen (Motrin) 600 mg PO Q6H PRN PRN Reason: Pain (mild 1-3) Insulin Glargine (Lantus) 20 unit SUBCUT BEDTIME [facility] Lisinopril (Prinivil) 10 mg PO BID [facility] Last Admin: 05/25/20 07:40 Dose: 10 mg Documented by: Metoprolol Succinate (Toprol Xl) 100 mg PO DAILY [facility] Last Admin: 05/25/20 07:39 Dose: 100 mg Documented by: Insulin Isophane Nph , Human; Humulin N * *Ptom 0 units SQ WITHLUNCH [facility] Insulin Isophane Nph , Human; Humulin N * *Ptom 0 units SUBCUT BID [facility] Last Admin: 05/25/20 08:01 Dose: 50 units Documented by: Ondansetron HCl (Zofran) 4 mg IV Q6H PRN PRN Reason: Nausea/Vomiting Promethazine HCl/Codeine (Phenergan With Codeine) 10 ml PO Q6H PRN PRN Reason: Cough Simvastatin (Zocor) 40 mg PO BEDTIME [facility] Last Admin: 05/24/20 19:47 Dose: 40 mg Documented by: Tamsulosin HCl (Flomax) 0.4 mg PO DAILY [facility] Last Admin: 05/25/20 07:40 Dose: 0.4 mg Documented by: Temazepam (Restoril) 15 mg PO BEDTIME PRN PRN Reason: Sleep Last Admin: 05/24/20 23:09 Dose: 15 mg Documented by: Discontinued Medications Furosemide (Lasix) 20 mg PO DAILY PRN PRN Reason: Edema Sodium Chloride (Normal Saline) 1,000 mls @ 500 mls/hr IV .BOLUS ONE Stop: 05/24/20 12:38 Last Admin: 05/24/20 11:26 Dose: 500 mls/hr Documented by: Iopamidol (Isovue-370 (76%)) 100 ml IVPUSH ONETIME ONE Stop: 05/24/20 10:23 Last Admin: 05/24/20 10:34 Dose: 100 ml Documented by: - Exam Quality Assessment: Supplemental Oxygen General: Alert, Oriented HEENT: Mucous Membr. Moist/[place] Neck: Supple Lungs: Decreased Breath Sounds Cardiovascular: Regular Rate, Regular Rhythm GI/Abdominal Exam: Normal Bowel Sounds, Soft, Non-Tender Extremities: Normal Inspection, Pedal Edema (trace) Skin: Warm, Dry Neurological: No New Focal Deficit Sepsis Event Note - Evaluation Sepsis Screening Result: No Definite Risk - Focused Exam Vital Signs: Vital Signs Temp Pulse Pulse Resp BP BP Pulse Ox 05/25/20 07:52 98.4 F 88 20 164/76 H 94 L 05/25/20 07:41 164/76 H 05/25/20 07:40 164/76 H 05/25/20 07:39 88 164/76 H 05/25/20 04:00 98.1 F 83 20 162/83 H 94 L 05/25/20 00:00 98.7 F 88 20 142/66 H 95 - Problem List & Annotations (1) Pneumonia SNOMED Code(s): 270967282 Code(s): J18.9 - PNEUMONIA, UNSPECIFIED ORGANISM Status: Acute Priority: High Current Visit: Yes Qualifiers: Pneumonia type: due to unspecified organism Laterality: left Lung location: upper lobe of lung Qualified Code(s): J18.9 - Pneumonia, unspecified organism (2) Weakness SNOMED Code(s): 84187055 Code(s): R53.1 - WEAKNESS Status: Acute Priority: High Current Visit: Yes - Problem List Review Problem List Initiated/Reviewed/Updated: Yes - My Orders Last 24 Hours: My Active Orders 05/25/20 07:55 Consult to Physical Therapy [PT Evaluation and Treatment] [CONS] Routine Codeine/Promethazine [Phenergan with Codeine] 10 ml PO Q6H PRN - Assessment Assessment:: NICOLA Pneumonia Weakness - Plan Plan:: Patient will continue with oxygen as needed to maintain sats. Ambulate. Start Physical therapy for strengthening. Continue IV levaquin. Start Prometh with codeine for cough. Labs stable today, WBC 9.2, CRP 1.1. Electrolytes are normal. Will repeat labs in am.
[2020-05-25] MEDS: Levofloxacin/Dextrose 5%-Water 750 MG in Premix Bag 1 BAG IV SCH (13:48)
[2020-05-25] MEDS: Albuterol/Ipratropium 3.0-0.5 MG/3 ML Neb Soln NEB PRN (19:39)
[2020-05-25] MEDS: Enoxaparin 40 MG/0.4 ML Syringe SUBCUT SCH (19:40)
[2020-05-25] MEDS: Simvastatin 40 MG Tab PO SCH (19:41)
[2020-05-25] MEDS: Temazepam 15 MG Cap PO PRN (19:57)
[2020-05-26 07:51] LABS: CHLORIDE,CL 104 mEq/L (98-106); SODIUM,NA 140 mEq/L (136-145)
[2020-05-26] MEDS: amLODIPine 10 MG Tab PO SCH (08:33)
[2020-05-26] MEDS: Tamsulosin 0.4 MG Cap.ER PO SCH (08:33)
[2020-05-26] MEDS: cloNIDine 0.1 MG Tab PO SCH ×2 (08:34→19:43)
[2020-05-26] MEDS: Aspirin 81 MG Tab.EC PO SCH (08:34)
[2020-05-26] MEDS: Lisinopril 10 MG Tab PO SCH ×2 (08:34→19:43)
[2020-05-26] MEDS: Furosemide 40 MG Tab PO SCH (08:34)
[2020-05-26] MEDS: [UNRECOGNIZED DRUG - OTHER] SUBCUT SCH ×2 (08:35→19:49)
[2020-05-26] MEDS: Metoprolol Succinate 100 MG Tab.ER PO SCH (08:35)
--- NOTE | 2020-05-26 08:45 | PCM.PN ---
- General Info Date of Service: 05/26/20 Admission Dx/Problem (Free Text): NICOLA Pneumonia Subjective Update: Patient states is feeling better today. Did not sleep well, sleep medicine did not work. Was coughing much of night. Did collect sputum, awaiting results. Admits to good appetite. Denies abdominal discomfort, has no burning. Recently completed a course of antibiotics for UTI as well. Does continue to feel weak. Had COVID, then issues with UTI and a reaction to the vaccine and now pneumonia. "Haven't gotten my energy back". Has been afebrile. 05-26-2020 Patient is feeling good. Does admit again that he only slept 2 hours during the night and that was only after he got up to the recliner. Does not feel cough medicine helped. He is not getting good results from Restoril, feels like it does the opposite. States felt jittery this am, felt related to his blood suga r. Blood sugar is 72. [place] juice was given. Appetite has been good. Functional Status: Reports: Pain Controlled, Tolerating Diet, Ambulating - Review of Systems General: Reports: Weakness. Denies: Fever, Fatigue, Malaise, Chills HEENT: Reports: No Symptoms Pulmonary: Reports: Cough, Sputum. Denies: Shortness of Breath Cardiovascular: Denies: Chest Pain, Edema, Lightheadedness Gastrointestinal: Denies: Abdominal Pain, Nausea, Vomiting Genitourinary: Reports: No Symptoms Musculoskeletal: Reports: No Symptoms Skin: Reports: No Symptoms Neurological: Reports: Weakness - Patient Data Vitals - Most Recent: Last Vital Signs Temp 97.6 F 05/26/20 04:00 Pulse 88 05/26/20 08:35 Resp 20 05/26/20 04:00 BP 176/81 H 05/26/20 08:35 Pulse Ox 95 05/26/20 04:00 Weight - Most Recent: 214 lb 11.2 oz I&O - Last 24 Hours: Intake & Output 05/25/20 05/26/20 05/26/20 22:59 06:59 14:59 Intake Total 5498 430 Output Total 9099 1300 Balance -847 -510 Lab Results Last 24 Hours: Laboratory Results - last 24 hr 05/24/20 05/24/20 05/25/20 Range/Units 16:40 20:00 11:34 WBC (5.0-10.0) 10^3/uL RBC (4.50-6.00) 10^6/uL Hgb (14.0-18.0) g/dL Hct (40.0-54.0) % MCV (82.0-94.0) fL MCH (27.0-32.0) pg MCHC (33.0-38.0) g/dL RDW Coeff of Hernandez (11.0-15.0) % Plt Count (150-400) 10^3/uL Neut % (Auto) (35-85) % Lymph % (Auto) (10-55) % [place] % (Auto) (0-16) % Eos % (Auto) (0-5) % Baso % (Auto) (0-3) % Neut # (Auto) (1.80-7.00) 10^3/uL Lymph # (Auto) (1.00-4.80) 10^3/uL [place]ine # (Auto) (0.00-0.80) 10^3/uL Eos # (Auto) (0.00-0.45) 10^3/uL Baso # (Auto) 10^3/uL Sodium (136-145) mEq/L Potassium (3.5-5.0) mEq/L Chloride (98-106) mEq/L Carbon Dioxide (21-32) mmol/L BUN (7-18) mg/dL Creatinine (0.7-1.3) mg/dL Est Cr Clr Drug Dosing mL/min Estimated GFR (MDRD) (>=60) mL/min Glucose (75-99) mg/dL POC Glucose 214 H 235 H 257 H (75-105) mg/dl Calcium (8.4-10.1) mg/dL C-Reactive Protein (0.2-0.8) mg/dL 05/25/20 05/25/20 05/26/20 Range/Units 17:23 19:51 05:00 WBC 11.0 H (5.0-10.0) 10^3/uL RBC 5.32 (4.50-6.00) 10^6/uL Hgb 13.0 L (14.0-18.0) g/dL Hct 40.5 (40.0-54.0) % MCV 76.1 L (82.0-94.0) fL MCH 24.4 L (27.0-32.0) pg MCHC 32.1 L (33.0-38.0) g/dL RDW Coeff of Hernandez 18.2 H (11.0-15.0) % Plt Count 204 (150-400) 10^3/uL Neut % (Auto) 75.2 (35-85) % Lymph % (Auto) 10.1 (10-55) % Josephine % (Auto) 11.6 (0-16) % Eos % (Auto) 2.9 (0-5) % Baso % (Auto) 0.2 (0-3) % Neut # (Auto) 8.24 H (1.80-7.00) 10^3/uL Lymph # (Auto) 1.11 (1.00-4.80) 10^3/uL Josephine # (Auto) 1.27 H (0.00-0.80) 10^3/uL Eos # (Auto) 0.32 (0.00-0.45) 10^3/uL Baso # (Auto) 0.02 10^3/uL Sodium (136-145) mEq/L Potassium (3.5-5.0) mEq/L Chloride (98-106) mEq/L Carbon Dioxide (21-32) mmol/L BUN (7-18) mg/dL Creatinine (0.7-1.3) mg/dL Est Cr Clr Drug Dosing mL/min Estimated GFR (MDRD) (>=60) mL/min Glucose (75-99) mg/dL POC Glucose 138 H 148 H (75-105) mg/dl Calcium (8.4-10.1) mg/dL C-Reactive Protein (0.2-0.8) mg/dL 05/26/20 05/26/20 Range/Units 05:00 06:28 WBC (5.0-10.0) 10^3/uL RBC (4.50-6.00) 10^6/uL Hgb (14.0-18.0) g/dL Hct (40.0-54.0) % MCV (82.0-94.0) fL MCH (27.0-32.0) pg MCHC (33.0-38.0) g/dL RDW Coeff of Hernandez (11.0-15.0) % Plt Count (150-400) 10^3/uL Neut % (Auto) (35-85) % Lymph % (Auto) (10-55) % Josephine % (Auto) (0-16) % Eos % (Auto) (0-5) % Baso % (Auto) (0-3) % Neut # (Auto) (1.80-7.00) 10^3/uL Lymph # (Auto) (1.00-4.80) 10^3/uL Josephine # (Auto) (0.00-0.80) 10^3/uL Eos # (Auto) (0.00-0.45) 10^3/uL Baso # (Auto) 10^3/uL Sodium 140 (136-145) mEq/L Potassium 3.9 (3.5-5.0) mEq/L Chloride 104 (98-106) mEq/L Carbon Dioxide 25 (21-32) mmol/L BUN 16 (7-18) mg/dL Creatinine 1.1 (0.7-1.3) mg/dL Est Cr Clr Drug Dosing 53.24 mL/min Estimated GFR (MDRD) > 60 (>=60) mL/min Glucose 100 H D (75-99) mg/dL POC Glucose 73 L (75-105) mg/dl Calcium 8.8 (8.4-10.1) mg/dL C-Reactive Protein 1.0 H (0.2-0.8) mg/dL Jayme Results Last 24 Hours: Microbiology 05/24/20 09:35 Aerobic Blood Culture - Preliminary Blood - Venous - Lab Draw NO GROWTH AFTER 1 DAY Anaerobic Blood Culture - Preliminary NO GROWTH AFTER 1 DAY 05/24/20 09:30 Aerobic Blood Culture - Preliminary Blood - Venous NO GROWTH AFTER 1 DAY Anaerobic Blood Culture - Preliminary NO GROWTH AFTER 1 DAY Med Orders - Current: Current Medications Acetaminophen (Tylenol) 650 mg PO Q4H PRN PRN Reason: Pain (Mild 1-3)/fever Last Admin: 05/25/20 21:52 Dose: 650 mg Documented by: Albuterol/Ipratropium (Duoneb 3.0-0.5 Mg/3 Ml) 3 ml NEB Q4H PRN PRN Reason: Shortness Of Breath/wheezing Last Admin: 05/25/20 19:39 Dose: 3 ml Documented by: Amlodipine Besylate (Norvasc) 10 mg PO DAILY [facility] Last Admin: 05/26/20 08:33 Dose: 10 mg Documented by: Aspirin (Halfprin) 81 mg PO DAILY [facility] Last Admin: 05/26/20 08:34 Dose: 81 mg Documented by: Clonidine HCl (Catapres) 0.1 mg PO BID [facility] Last Admin: 05/26/20 08:34 Dose: 0.1 mg Documented by: Docusate Sodium (Colace) 100 mg PO BID PRN PRN Reason: Constipation Enoxaparin Sodium (Lovenox) 40 mg SUBCUT Q24H [facility] Last Admin: 05/25/20 19:40 Dose: 40 mg Documented by: Furosemide (Lasix) 40 mg PO DAILY [facility] Last Admin: 05/26/20 08:34 Dose: 40 mg Documented by: Levofloxacin/Dextrose 750 mg/ (Premix) 150 mls @ 100 mls/hr IV Q24H [facility] Last Admin: 05/25/20 13:48 Dose: 100 mls/hr Documented by: Ibuprofen (Motrin) 600 mg PO Q6H PRN PRN Reason: Pain (mild 1-3) Insulin Glargine (Lantus) 20 unit SUBCUT BEDTIME [facility] Lisinopril (Prinivil) 10 mg PO BID [facility] Last Admin: 05/26/20 08:34 Dose: 10 mg Documented by: Metoprolol Succinate (Toprol Xl) 100 mg PO DAILY [facility] Last Admin: 05/26/20 08:35 Dose: 100 mg Documented by: Insulin Isophane Nph , Human; Humulin N * *Ptom 0 units SUBCUT BID [facility] Last Admin: 05/26/20 08:35 Dose: 25 units Documented by: Insulin Isophane Nph , Human; Humulin N * *Ptom 0 units SUBCUT WITHLUNCH [facility] Last Admin: 05/25/20 14:28 Dose: Not Given Documented by: Ondansetron HCl (Zofran) 4 mg IV Q6H PRN PRN Reason: Nausea/Vomiting Promethazine HCl/Codeine (Phenergan With Codeine) 10 ml PO Q6H PRN PRN Reason: Cough Last Admin: 05/25/20 19:52 Dose: 10 ml Documented by: Simvastatin (Zocor) 40 mg PO BEDTIME [facility] Last Admin: 05/25/20 19:41 Dose: 40 mg Documented by: Tamsulosin HCl (Flomax) 0.4 mg PO DAILY [facility] Last Admin: 05/26/20 08:33 Dose: 0.4 mg Documented by: Temazepam (Restoril) 15 mg PO BEDTIME PRN PRN Reason: Sleep Last Admin: 05/25/20 19:57 Dose: 15 mg Documented by: Discontinued Medications Furosemide (Lasix) 20 mg PO DAILY PRN PRN Reason: Edema Sodium Chloride (Normal Saline) 1,000 mls @ 500 mls/hr IV .BOLUS ONE Stop: 05/24/20 12:38 Last Admin: 05/24/20 11:26 Dose: 500 mls/hr Documented by: Iopamidol (Isovue-370 (76%)) 100 ml IVPUSH ONETIME ONE Stop: 05/24/20 10:23 Last Admin: 05/24/20 10:34 Dose: 100 ml Documented by: Insulin Isophane Nph , Human; Humulin N * *Ptom 0 units SQ WITHLUNCH [facility] Last Admin: 05/25/20 11:39 Dose: 20 units Documented by: - Exam General: Alert, Oriented HEENT: Mucous Membr. Moist/[place] Neck: Supple Lungs: Clear to Auscultation, Normal Respiratory Effort Cardiovascular: Regular Rate, Regular Rhythm GI/Abdominal Exam: Normal Bowel Sounds, Soft, Non-Tender Extremities: Normal Inspection, No Pedal Edema Skin: Warm, Dry Neurological: No New Focal Deficit Sepsis Event Note - Evaluation Sepsis Screening Result: No Definite Risk - Focused Exam Vital Signs: Vital Signs Temp Pulse Pulse Resp BP BP BP 05/26/20 08:35 88 176/81 H 05/26/20 08:34 176/81 H 05/26/20 08:33 176/81 H 05/26/20 04:00 97.6 F 83 20 136/77 05/25/20 22:27 97.8 F 84 24 H 162/72 H Pulse Ox 05/26/20 08:35 05/26/20 08:34 05/26/20 08:33 05/26/20 04:00 95 05/25/20 22:27 94 L - Problem List & Annotations (1) Pneumonia SNOMED Code(s): 543054205 Code(s): J18.9 - PNEUMONIA, UNSPECIFIED ORGANISM Status: Acute Priority: High Current Visit: Yes Qualifiers: Pneumonia type: due to unspecified organism Laterality: left Lung location: upper lobe of lung Qualified Code(s): J18.9 - Pneumonia, unspecified organism (2) Weakness SNOMED Code(s): 34345251 Code(s): R53.1 - WEAKNESS Status: Acute Priority: High Current Visit: Yes - Problem List Review Problem List Initiated/Reviewed/Updated: Yes - My Orders Last 24 Hours: My Active Orders 05/25/20 07:55 Consult to Physical Therapy [PT Evaluation and Treatment] [CONS] Routine Codeine/Promethazine [Phenergan with Codeine] 10 ml PO Q6H PRN - Assessment Assessment:: NICOLA Pneumonia Weakness - Plan Plan:: Patient will continue with oxygen as needed to maintain sats. Ambulate. Start Physical therapy for strengthening. Continue IV levaquin. Start Prometh with codeine for cough. Labs stable today, WBC 9.2, CRP 1.1. Electrolytes are normal. Will repeat labs in am. 05-26-2020 Attempts to wean off oxygen today. Labs note WBC of 11. CRP 1.0. Lung sounds are clear. Will continue with IV antibiotics. Repeat labs in am. Continue PT. Probable discharge home in am.
[2020-05-26] MEDS: Levofloxacin/Dextrose 5%-Water 750 MG in Premix Bag 1 BAG IV SCH (13:33)
[2020-05-26] MEDS: Enoxaparin 40 MG/0.4 ML Syringe SUBCUT SCH (19:42)
[2020-05-26] MEDS: Simvastatin 40 MG Tab PO SCH (19:42)
[2020-05-27 07:32] LABS: CHLORIDE,CL 104 mEq/L (98-106); SODIUM,NA 139 mEq/L (136-145)
[2020-05-27] MEDS: Furosemide 40 MG Tab PO SCH (07:40)
[2020-05-27] MEDS: amLODIPine 10 MG Tab PO SCH (07:40)
[2020-05-27] MEDS: Tamsulosin 0.4 MG Cap.ER PO SCH (07:40)
[2020-05-27] MEDS: Aspirin 81 MG Tab.EC PO SCH (07:40)
[2020-05-27] MEDS: cloNIDine 0.1 MG Tab PO SCH ×2 (07:40→19:43)
[2020-05-27] MEDS: [UNRECOGNIZED DRUG - OTHER] SUBCUT SCH ×2 (07:41→19:54)
[2020-05-27] MEDS: Metoprolol Succinate 100 MG Tab.ER PO SCH (07:41)
[2020-05-27] MEDS: Lisinopril 10 MG Tab PO SCH ×2 (07:41→19:44)
--- NOTE | 2020-05-27 10:59 | PN ---
DATE: 05/27/2020 S: Mr. Mcbride was admitted for pneumonia. He has been doing much better. He has not spiked any temps for over 2 days. His blood pressures are fine. We were able to wean him off O2 yesterday, but last night it did drop down to about 89% while sleeping. He is 96 on 2 L. Blood cultures are negative. His lab work has been reassuring. O: GENERAL: Today shows him to be pleasant, alert, and cooperative. HEENT: Grossly benign. NECK: Veins are flat. LUNGS: Sounds appear quite clear in all henriquez. CARDIAC: Tones are regular. ABDOMEN: Soft. No significant peripheral edema. ASSESSMENT: 1. PNEUMONIA. 2. HISTORY OF CONGESTIVE HEART FAILURE. 3. BPH. P: Clinically, the patient looks quite well. We will plan on home tomorrow. Wean him off O2 today. TAVO/GILDA /[id number]
[2020-05-27] MEDS: Levofloxacin/Dextrose 5%-Water 750 MG in Premix Bag 1 BAG IV SCH (13:13)
[2020-05-27] MEDS: Simvastatin 40 MG Tab PO SCH (19:44)
[2020-05-27] MEDS: Enoxaparin 40 MG/0.4 ML Syringe SUBCUT SCH (19:44)
[2020-05-27] MEDS: Temazepam 15 MG Cap PO PRN (20:26)
[2020-05-28] MEDS: Tamsulosin 0.4 MG Cap.ER PO SCH (07:36)
[2020-05-28] MEDS: amLODIPine 10 MG Tab PO SCH (07:37)
[2020-05-28] MEDS: Furosemide 40 MG Tab PO SCH (07:37)
[2020-05-28] MEDS: Aspirin 81 MG Tab.EC PO SCH (07:37)
[2020-05-28] MEDS: Lisinopril 10 MG Tab PO SCH (07:37)
[2020-05-28] MEDS: Metoprolol Succinate 100 MG Tab.ER PO SCH (07:37)
[2020-05-28] MEDS: cloNIDine 0.1 MG Tab PO SCH (07:37)
[2020-05-28 07:38] VITALS: BP 142/75; PULSE 91
[2020-05-28] MEDS: [UNRECOGNIZED DRUG - OTHER] SUBCUT SCH (07:39)
--- NOTE | 2020-05-28 10:51 | DISCH ---
ADMISSION DIAGNOSIS: Left lower lobe pneumonia. DISCHARGE DIAGNOSIS: 1. LEFT LOWER LOBE PNEUMONIA. 2. WEAKNESS, IMPROVED. 3. HYPERTENSION. 4. HISTORY OF STABLE CONGESTIVE HEART FAILURE. HISTORY: The patient is an 84-year-old male who presented with cough and weakness, was evaluated by Manuel Melton in our emergency room. At the time of admission, had a normal white count. Kidney functions were stable. Chest x-ray showed what appeared to be a pneumonia with some bilateral pleural effusions. He was admitted for IV antibiotics. HOSPITAL COURSE: The patient was started on IV Levaquin. He did really well. Since here, he has not spiked any temps. His vital signs have been stable. He was initially on O2 around 2 L. He has been able to be weaned off and is now ambulating and staying in the mid to high 90%. The cough has essentially resolved. He has had no further sputum production and it is worthy to note that his blood cultures were negative on admit. At this time, he is clinically stable. He is ambulating, eating well, and is stable for outpatient course of antibiotics to finish off his course. We will follow him up in the clinic in the next week with routine lab and repeat chest x-ray. COMPLICATIONS: During his stay were none. CONSULTATIONS: None. DISPOSITION: Discharge to home. FROYLAN /[id number]
[2020-05-28] MEDS ORDERED: Levofloxacin/Dextrose 5%-Water 750 MG in Premix Bag 1 BAG IV SCH (11:00)
== END 2020-05-28 13:10 | disposition home or self-care (01) | DRG 195 ==
LOC: CC.ED 08:23 → CC.MS 11:53 → UNDOADMIN 12:06 → CC.MS 12:06
PROVIDERS: ADMIT Nurse Practitioner; ATTEND Family Medicine
DX: J18.9 Pneumonia, unspecified organism (principal); J18.0 Bronchopneumonia, unspecified organism; R53.1 Weakness; I11.0 Hypertensive heart disease with heart failure; I50.9 Heart failure, unspecified; E78.5 Hyperlipidemia, unspecified; Z87.440 Personal history of urinary (tract) infections; H54.7 Unspecified visual loss; Z86.16 Personal history of COVID-19; N40.0 Benign prostatic hyperplasia without lower urinary tract symptoms; E78.00 Pure hypercholesterolemia, unspecified; I10 Essential (primary) hypertension; E11.9 Type 2 diabetes mellitus without complications; N42.9 Disorder of prostate, unspecified; Z79.82 Long term (current) use of aspirin; Z79.4 Long term (current) use of insulin; Z79.899 Other long term (current) drug therapy; Z20.822 Contact with and (suspected) exposure to COVID-19
CPT/HCPCS: 36415; 51702; 71046; 71275; 80048; 80053; 82550; 82962; 83605; 83615; 83880; 84484; 85025; 85379; 86140; 87040; 93005; 93010; 94640; 97110-GP; 97161-GP; 99284; 99285-25; A9270-GY; J1650; J1956; J7030; J7620-GY; Q9967; U0002

== ENCOUNTER 2020-10-09 04:23 | Emergency (ER) | payer MEDICARE, BC ==
[~2020-10-09 04:23] MED LIST changes: +Atropine 0.1 MG/ML 10 ML Syringe ONE; -Lactated Ringers 1,000 ML IV SCH; -Propofol 200 MG/20 ML SDV IV ONE
[2020-10-09] MEDS ORDERED: Atropine 0.1 MG/ML 10 ML Syringe ONE ×2 (04:35→04:39)
[2020-10-09] MEDS ORDERED: Atropine 0.4 MG/ML SDV IVPUSH ONE ×2 (04:36→05:01)
[2020-10-09 05:00] LABS: CHLORIDE,CL 102 mEq/L (98-106); SODIUM,NA 137 mEq/L (136-145)
[2020-10-09] MEDS ORDERED: fentaNYL 50 MCG/ML SDV IVPUSH ONE ×3 (05:18→06:57)
[2020-10-09] MEDS ORDERED: Midazolam 1 MG/ML 2 ML SDV IVPUSH ONE ×3 (05:18→06:57)
--- NOTE | 2020-10-09 05:30 | EDM.PDOC ---
ED HPI GENERAL MEDICAL PROBLEM - General Chief Complaint: General Stated Complaint: Chest Pain Time Seen by Provider: 10/09/20 04:45 Source of Information: Reports: Patient History Limitations: Reports: No Limitations - History of Present Illness INITIAL COMMENTS - FREE TEXT/NARRATIVE: This patient is a pleasant 85 year old male that presents to the ER. Patient arrives via EMS. Patient reports that at 9pm last night he was sitting on the toilet and passed out. He denies falling with injury or hitting his head. He reports since 9pm last night feeling lightheaded, short of breath, generally weak, and having chest pain/pressure in his central chest. He is a DNR. He reports he would get treatment and pacemaker if needed. He is alert and oriented. Onset Date: 10/08/20 Onset Time: 21:00 Location: Reports: Chest Severity: Moderate Worsens with: Reports: Movement Associated Symptoms: Reports: Chest Pain, Malaise, Shortness of Breath, Syncope, Weakness. Denies: Confusion, Cough, cough w sputum, Diaphoresis, Fever/Chills, Headaches, Loss of Appetite, Nausea/Vomiting, Rash, Seizure Treatments COOK COLD MEAT: Reports: EKG, IV/IO - Related Data Allergies Allergy/AdvReac Type Severity Reaction Status Date / Time No Known Allergies Allergy Verified 05/24/20 08:40 Home Meds: Home Meds Benazepril [Lotensin] 10 mg PO BID 01/25/17 [History] Insulin Detemir [Levemir Flextouch] 20 unit SQ BEDTIME 01/25/17 [History] Simvastatin [Zocor] 40 mg PO DAILY 01/25/17 [History] Aspirin [Ecotrin EC] 81 mg PO DAILY 10/31/19 [History] Insulin Isophane NPH, Human [HumuLIN N] 10 units SQ WITHLUNCH 10/31/19 [History] Metoprolol Succinate [Toprol XL 100mg] 100 mg PO DAILY 10/31/19 [History] Tamsulosin HCl 0.4 mg PO DAILY 12/11/19 [History] amLODIPine [Norvasc] 10 mg PO DAILY 02/01/20 [History] cloNIDine HCL [Clonidine HCl] 0.1 mg PO BID 02/01/20 [History] Insulin Isophane NPH, Human [HumuLIN N] 20 units SQ BID 11/05/20 [History] Furosemide [Lasix] 60 mg PO DAILY PRN #0 05/28/20 [Rx] Levofloxacin [Levaquin] 500 mg PO DAILY #5 tablet 05/28/20 [Rx] Past Medical History HEENT History: Reports: Hard of Hearing Cardiovascular History: Reports: High Cholesterol, Hypertension Gastrointestinal History: Reports: Cholelithiasis Genitourinary History: Reports: Prostate Disorder, UTI, Recurrent Musculoskeletal History: Reports: Arthritis Endocrine/Metabolic History: Reports: Diabetes, Type II Oncologic (Cancer) History: Reports: Other (See Below) Other Oncologic History: KIdney cancer - Infectious Disease History Infectious Disease History: Reports: MRSA, Novel Coronavirus Other Infectious Disease History: left wrist incision 01/02/18 - Past Surgical History HEENT Surgical History: Reports: None GI Surgical History: Reports: Cholecystectomy, Colonoscopy, Hernia Repair/Other Endocrine Surgical History: Reports: None Musculoskeletal Surgical History: Reports: None Oncologic Surgical History: Reports: Other (See Below) Other Oncologic Surgeries/Procedures: kidney removed Social & Family History - Family History Family Medical History: No Pertinent Family History Cardiac: Reports: Hypertension Respiratory: Reports: None - Tobacco Use Tobacco Use Status *Q: Never Tobacco User - Caffeine Use Caffeine Use: Reports: None - Recreational Drug Use Recreational Drug Use: No - Living Situation & Occupation Living situation: Reports: with Family ED ROS GENERAL - Review of Systems Review Of Systems: See Below Constitutional: Reports: Malaise, Weakness, Fatigue HEENT: Reports: No Symptoms Respiratory: Reports: Shortness of Breath Cardiovascular: Reports: Chest Pain, Lightheadedness, Syncope Endocrine: Reports: No Symptoms GI/Abdominal: Reports: No Symptoms : Reports: No Symptoms Musculoskeletal: Reports: No Symptoms Skin: Reports: No Symptoms Neurological: Reports: No Symptoms Psychiatric: Reports: No Symptoms Hematologic/Lymphatic: Reports: No Symptoms Immunologic: Reports: No Symptoms ED EXAM, GENERAL - Physical Exam Exam: See Below Exam Limited By: No Limitations General Appearance: Moderate Distress Eye Exam: Bilateral Eye: Normal Inspection, PERRL Ears: Hearing Grossly Normal, Other (hearing aids intact) Ear Exam: Bilateral Ear: Auricle Normal Nose: Normal Inspection, Normal Mucosa, No Blood Throat/Mouth: Normal Inspection, Normal Lips, Normal Teeth, Normal Gums, Normal Oropharynx, Normal Voice, No Airway Compromise Head: Atraumatic, Normocephalic Neck: Normal Inspection, Supple, Non-Tender, Full Range of Motion Respiratory/Chest: No Respiratory Distress, Lungs Clear, Normal Breath Sounds, No Accessory Muscle Use, Chest Non-Tender Cardiovascular: Bradycardia (Rate 24) Peripheral Pulses: 1+: Radial (L), Radial (R), Posterior Tibial (L), Posterior Tibial (R) GI/Abdominal: Soft, Non-Tender Back Exam: Normal Inspection Extremities: Normal Inspection, Normal Range of Motion, Non-Tender, No Pedal Edema, Normal Capillary Refill Neurological: Alert, Oriented Psychiatric: Normal Affect, Normal Mood Skin Exam: Warm, Dry, Intact, Normal Color, No Rash #1 Interpretation EKG Date: 10/09/20 Time: 04:42 Rhythm: Other (Bradycardia) Rate (Beats/Min): 32 QRS: Other (3rd degree heart block) Course - Vital Signs Last Recorded V/S: Last Vital Signs Temp 97.8 F 10/09/20 04:27 Pulse 68 10/09/20 06:46 Resp 14 10/09/20 04:27 BP 113/78 10/09/20 06:46 Pulse Ox 99 10/09/20 04:27 - Orders/Labs/Meds Orders: Active Orders 24 hr Category Date Time Status Chest 1V Frontal [CR] Stat Exams 10/09/20 05:03 Taken Labs: Laboratory Tests 10/09/20 10/09/20 10/09/20 Range/Units 04:46 04:46 05:08 WBC 11.5 H (4.0-11.0) 10^3/uL RBC 5.04 (4.50-6.00) x10^6/uL Hgb 12.8 L (14.0-18.0) g/dL Hct 40.1 L (42.0-52.0) % MCV 79.6 L (83.0-97.0) fL MCH 25.4 L (27.0-32.0) pg MCHC 31.9 L (32.0-36.0) g/dL RDW Coeff of Hernandez 16.8 H (11.0-15.0) % Plt Count 235 (150-400) 10^3/uL Immature Gran % (Auto) 1.0 (0.0-4.9) % Neut % (Auto) 73.0 H (41-71) % Lymph % (Auto) 13.5 L (24-44) % [place] % (Auto) 9.2 (0-10) % Eos % (Auto) 2.9 (0-6) % Baso % (Auto) 0.4 (0-1) % Neut # (Auto) 8.41 H (1.80-8.00) x10^3/uL Lymph # (Auto) 1.56 (0.60-5.00) 10^3/uL [place] # (Auto) 1.06 (0.00-1.50) 10^3/uL Eos # (Auto) 0.33 (0.00-1.50) 10^3/uL Baso # (Auto) 0.05 (0.00-0.50) 10^3/uL Immature Gran # (Auto) 0.12 (0.00-0.49) 10^3/uL Sodium 137 (136-145) mEq/L Potassium 4.8 (3.5-5.0) mEq/L Chloride 102 (98-106) mEq/L Carbon Dioxide 25 (21-32) mmol/L BUN 23 H (7-18) mg/dL Creatinine 1.6 H (0.7-1.3) mg/dL Est Cr Clr Drug Dosing 35.95 mL/min Estimated GFR (MDRD) 41 L (>=60) mL/min Glucose 305 H* D (75-99) mg/dL Calcium 8.5 (8.4-10.1) mg/dL Magnesium 2.0 (1.8-2.4) mg/dL Total Bilirubin 0.7 (0.0-1.0) mg/dL AST 38 H (15-37) U/L ALT 29 (12-78) U/L Alkaline Phosphatase 115 (46-116) U/L Troponin I < 0.017 (0.00-0.06) ng/mL NT-Pro-B Natriuret Pep 2770 H (0-1000) pg/mL Total Protein 7.0 (6.4-8.2) g/dL Albumin 3.2 L (3.4-5.0) g/dL Meds: Medications Discontinued Medications Generic Name Dose Route Start Last Admin Trade Name Freq PRN Reason Stop Dose Admin Atropine Sulfate 1 mg 10/09/20 04:36 10/09/20 04:42 Atropine 0.4 Mg/Ml Sdv IVPUSH 10/09/20 04:37 1 mg ONETIME ONE Administration Atropine Sulfate Confirm 10/09/20 04:16 10/09/20 05:01 Atropine 0.1 Mg/Ml 10 Ml Syringe Administered 10/09/20 04:17 Not Given Dose 1 mg .ROUTE .STK-MED ONE Atropine Sulfate Confirm 10/09/20 04:35 10/09/20 05:02 Atropine 0.1 Mg/Ml 10 Ml Syringe Administered 10/09/20 04:36 Not Given Dose 1 mg .ROUTE .STK-MED ONE Atropine Sulfate 1 mg 10/09/20 05:01 10/09/20 05:01 Atropine 0.4 Mg/Ml Sdv IVPUSH 10/09/20 05:02 1 mg ONETIME ONE Administration Atropine Sulfate Confirm 10/09/20 04:39 10/09/20 05:02 Atropine 0.1 Mg/Ml 10 Ml Syringe Administered 10/09/20 04:40 Not Given Dose 1 mg .ROUTE .STK-MED ONE Epinephrine HCl Confirm 10/09/20 06:29 Epinephrine 1 Mg/Ml Sdv Administered 10/09/20 06:30 Dose 1 mg .ROUTE .STK-MED ONE Fentanyl 25 mcg 10/09/20 05:18 10/09/20 05:30 Fentanyl 50 Mcg/Ml Sdv IVPUSH 10/09/20 05:19 25 mcg ONETIME ONE Administration Fentanyl 25 mcg 10/09/20 06:33 10/09/20 06:38 Fentanyl 50 Mcg/Ml Sdv IVPUSH 10/09/20 06:34 25 mcg ONETIME ONE Administration Fentanyl 25 mcg 10/09/20 06:57 Fentanyl 50 Mcg/Ml Sdv IVPUSH 10/09/20 06:58 ONETIME ONE Sodium Chloride Confirm 10/09/20 06:30 Normal Saline Administered 10/09/20 06:31 Dose 250 mls @ as directed .ROUTE .STK-MED ONE Midazolam HCl 1 mg 10/09/20 05:18 10/09/20 05:29 Midazolam 1 Mg/Ml 2 Ml Sdv IVPUSH 10/09/20 05:19 1 mg ONETIME ONE Administration Midazolam HCl 1 mg 10/09/20 06:33 10/09/20 06:38 Midazolam 1 Mg/Ml 2 Ml Sdv IVPUSH 07/03/21 06:34 1 mg ONETIME ONE Administration Midazolam HCl 1 mg 10/09/20 06:57 Midazolam 1 Mg/Ml 2 Ml Sdv IVPUSH 10/09/20 06:58 ONETIME ONE - Re-Assessments/Exams Free Text/Narrative Re-Assessment/Exam: 10/09/20 04:45 Patient HR fell to 24, symptomatic lightheaded, shortness of breath, chest pain. BP is stable. ZOFIA RN called with this report to me, Atropine 1mg order given verbally. 10/09/20 04:50 I called [facility] and spoke to Evelina and requested a flight for transfer. She will begin working on. I am at patient bedside now. 10/09/20 05:03 Patient HR is 32, symptomatic. 2nd Atropine 1mg given, no response. Setting patient up for transcutaneous pacing. Medications ordered for comfort. Spoke to Dr. Lucho Guerra for EKG read, he agrees probably 3rd degree heart block. 10/09/20 05:05 Called and spoke to senior tax accountant Dr. Mccrary. Sent him EKG for review. He reports to send patient to ER. He reports start pacing. 10/09/20 05:17 Spoke to [facility] ER Dr. Hamilton who has accepted the patient. 10/09/20 05:28 Patient was given Versed and Fentanyl. Started Transcutaneous pacing started at 50MA, Target HR, but not capturing, with HR 36. Increased to 60MA, now HR at 70 target. currently reports his pain is tolerable at 4/10. His BP is 131/49. Flight Fixed wing cleared for weather go from [place]. 10/09/20 05:35 Patient HR is down to 30, pacing increased to 60MA. Pacing pads checked, in good placement and secure. 10/09/20 05:38 Patient HR is still at 30, pacing increased to 70MA. 10/09/20 05:44 Patient HR is still 30, pacing increased to 80MA. 10/09/20 05:55 Patient HR is now 76, pacing at 80MA, Pacer set at Rate 70. Still waiting for flight. Pacing pads checked, in good placement and secure. 10/09/20 06:11 Patient HR fell to 40, pacing increased to 90MA, still target rate 70. Patient reports his pain is better at a 2/10. He is resting with eyes closed, easily aroused, to awake easily. Spoke to Dr. Lucho Bhagat about MA value, he reports can keep increasing to obtain HR and can titrate as needed. 10/09/20 06:26 Patient HR is 68, pacing currently at 90MA, Target rate 70. BP 111/85. Patient resting comfortably with eyes open. He reports his pain in chest is a 1-2/10. 10/09/20 06:34 Patient reports that he feels like he could pass out. He reports that feeling comes and goes. Patient now states "The shocker really hurts now." He will not give me a pain scale. I have ordered more Versed and Fentanyl. HR is 64 pacing currently at 90MA, Target rate 70. BP is 111/81. Pacing pads checked, in good placement and secure. 10/09/20 06:48 Patient now has snoring respirations, oxygen at 2L NC has dropped to 86%, NC increased to 6L NC, now at 96% oxygen saturation. Patient is drowsy but arousable. Patient HR has now fallen to 26. Pacing increased to 100MA, HR remains at 26. Pacing increased to 110MA. Epi gtt pulled from [employer] and RN mixing in case need to give. Flight has arrived. Flight is now in room, they have hooked their pacing pads and monitor on patient. They have began pacing patient, the patient now with flight pacing on, is a lot more responsive and alert. His HR is now 70. Patient reports now having 10/10 pain, he was given more Versed and Fentanyl for pain. Flight now has assumed care and has transferred the patient. Departure - Departure Time of Disposition: 07:08 Disposition: DC/Tfer to Acute Hospital 02 Condition: Critical Clinical Impression: Bradycardia, Third degree heart block by electrocardiogram Chest pain Qualifiers: Chest pain type: other chest pain Qualified Code(s): R07.89 - Other chest pain - Discharge Information *PRESCRIPTION DRUG MONITORING PROGRAM REVIEWED*: Not Applicable *COPY OF PRESCRIPTION DRUG MONITORING REPORT IN PATIENT AYAH: Not Applicable Referrals: PCP,None [Primary Care Provider] - Forms: ED Department Discharge Sepsis Event Note (ED) - Evaluation Sepsis Screening Result: No Definite Risk - Focused Exam Vital Signs: Vital Signs Temp Pulse Resp BP Pulse Ox 10/09/20 06:46 68 113/78 10/09/20 06:38 70 111/89 10/09/20 06:11 63 116/59 L 10/09/20 05:53 81 116/53 L 10/09/20 05:38 71 131/59 L 10/09/20 05:35 28 L 111/57 L 10/09/20 04:53 29 L 127/66 10/09/20 04:27 97.8 F 36 L 14 124/54 L 99 - My Orders Last 24 Hours: My Active Orders 10/09/20 05:03 Chest 1V Frontal [CR] Stat - Assessment/Plan Last 24 Hours: My Active Orders 10/09/20 05:03 Chest 1V Frontal [CR] Stat Plan: PLEASE SEE RN NOTE FOR PFSH This patient is being transferred to [facility]. The risk vs Benefits have been explained to the patient and he has agreed to the transfer. His [id number] and son are in the room and also agree to the transfer. The risk of transfer is airplane crash, , cardiac arrest, pain with pacing. The risk of staying in [place] is , worsening of HR, cardiac arrest. The benefits of transfer are higher level of care, senior tax accountant, pacemaker placement. The benefits of staying in [place] is close to home.
[2020-10-09] MEDS ORDERED: EPINEPHrine 1 MG/ML SDV ONE (06:29)
[2020-10-09] MEDS ORDERED: Sodium Chloride 0.9% 250 ML ONE (06:30)
== END 2020-10-09 07:15 ==
LOC: CC.ED 04:23
DX: I44.2 Atrioventricular block, complete (principal); R00.1 Bradycardia, unspecified; E78.00 Pure hypercholesterolemia, unspecified; I10 Essential (primary) hypertension; E11.9 Type 2 diabetes mellitus without complications; Z79.82 Long term (current) use of aspirin; Z79.4 Long term (current) use of insulin; Z79.899 Other long term (current) drug therapy; Z86.16 Personal history of COVID-19
CPT/HCPCS: 36415; 51702; 71045; 80053; 83735; 83880; 84484; 85025; 96374; 96375; 96376; 99285; J0461; J2250; J3010; 99284